=== PATIENT | female | born 1960 | race Caucasian/White ===

== ENCOUNTER 2020-12-06 18:05 | Observation (INO) | payer OTHER, SELFPAY ==
[2020-12-06] VITALS (8 sets, daily range): BP systolic 115–160; BP diastolic 68–104; PULSE 73–104; RESP 14–27; TEMP 36.3–36.7; O2SAT 96–100; BMI 35.3
--- NOTE | 2020-12-06 18:21 | EKG12_ITS ---
Test Reason : CP Blood Pressure : / mmHG Vent. Rate : 096 BPM Atrial Rate : 096 BPM P-R Int : 110 ms QRS Dur : 104 ms QT Int : 358 ms P-R-T Axes : 010 001 052 degrees QTc Int : 452 ms Sinus rhythm with short AR Incomplete right bundle branch block Borderline ECG Confirmed by ILANA PENALOZA, BEST ([id number]), material expeditor DEEPTI CHAMPION ([id number]) on 12/09/2020 9:19:44 AM Referred By: JASIEL/COLTEN Confirmed By:BEST PRECIADO MD
--- NOTE | 2020-12-06 18:22 | EDS_ITS ---
HPI History of Present Illness Chief Complaint: Chest Pain Detail of Chief Complaint: Chest pain Informant: patient Onset/Context/Timing Current Severity: 07/08 Maximum Severity: Severe Narrative Narrative: Patient presents to the emergency department complaint of chest pain that started somewhat suddenly after she had finished having intercourse. She describes a sharp stabbing pain in left side of her chest that radiated through to her back. Now the chest pain is mostly resolved describing discomfort in her back. She denies nausea or vomiting or diaphoresis. She is not sure if she was more short of breath than usual. Pain did not radiate into the arm or neck or jaw. She is not had discomfort like that before. Patient is a diabetic and has history of hypertension. Patient has history of remote DVT in 1982 but no issues since then. She is not had any recent travel or surgery. CVD Risk Factors: Positive for Hypertension and Diabetes [facility] Medical History (Updated 12/06/20 @ 20:[address] Amauri Arcos, DO) Diabetes Hypertension Home Medications lisinopril [Zestril] 40 mg PO DAILY 01/09/17 [History Last Taken Unknown] metformin 500 mg PO DAILY 01/09/17 [History Last Taken Unknown] montelukast 10 mg PO DAILY 01/09/17 [History Last Taken Unknown] omeprazole 20 mg PO DAILY 01/09/17 [History Last Taken Unknown] Allergy/AdvReac Type Severity Reaction Status Date / Time aspirin [ASA] Allergy Unknown Verified 12/06/20 18:19 codeine Allergy Unknown Verified 12/06/20 18:19 Social History Smoking Status: Current every day smoker tobacco type: cigarettes ROS ROS ED Review of Systems ROS Unobtainable: other Constitutional Constitutional ED: Reports lethargy; Denies chills, fever(s), sweats or weight loss Eyes Eyes: Denies blurry vision, change in vision or diplopia ENT ENT ED: Denies rhinorrhea or sore throat Cardiovascular Cardiovascular: Reports chest pain and racing heartbeat; Denies orthopnea Respiratory/Chest Respiratory/Chest: Reports dyspnea and dyspnea on exertion; Denies cough, orthopnea or sputum Gastrointestinal Gastrointestinal: Denies abdominal pain, diarrhea, nausea or vomiting Genitourinary Genitourinary ED: Denies dysuria, hematuria or urinary frequency Musculoskeletal Musculoskeletal: Denies arthralgias, back pain, myalgias or neck pain Integumentary Denies abscess, Abrasions or rash Neurologic Neurologic: Denies headache(s) or weakness Psychiatric Psychiatric: Denies anxiety, depression or suicidal thoughts Endocrine Endocrinology: Denies polydipsia, polyphagia or polyuria Hematologic/Lymphatic Hematologic/Lymphatic: Denies easy bleeding, easy bruising or lymphadenopathy Allergic/Immunologic Allergic/Immunologic ED: Denies mouth swelling, tongue swelling or urticaria EXAM Physical Exam Const Vital Signs: 12/06/20 18:06 12/06/20 18:27 12/06/20 18:53 Temperature 98.1 F Temperature Source Temporal Pulse Rate 104 H Respiratory Rate 27 H Respiratory Effort Normal Respiratory Pattern Normal Blood Pressure 160/104 H Blood Pressure Mean 122 Pulse Ox 98 Oxygen Delivery Method Room Air Room Air 12/06/20 19:51 Temperature Temperature Source Pulse Rate 79 Respiratory Rate 18 Respiratory Effort Respiratory Pattern Blood Pressure 117/91 H Blood Pressure Mean 99 Pulse Ox 100 Oxygen Delivery Method Room Air Positive well nourished and well developed General Appearance ED: well developed and NAD HEENT Reports TM's clear and moist mucous membranes normocephalic and atraumatic; Negative for trauma or tenderness Tympanic Membrane ED: Yes TM's clear Eyes PERRL and EOMs intact bilaterally General Eye ED: Negative for pale conjunctiva or scleral icterus Neck no lymphadenopathy, supple and no JVD General: Negative for tenderness Chest Wall inspection of chest normal and palpation of chest normal Chest: Negative for tenderness Resp normal respiratory effort and clear to auscultation bilaterally Effort and Inspection: Negative for respiratory distress or pain with movement Auscultation: Negative for rhonchi, wheezes or diminished lung sounds Cardio regular rate, regular rhythm, S1 normal heart sound, S2 normal heart sound and no murmurs Peripheral Pulses: pulses 2+ throughout GI normal to inspection, nondistended, normoactive bowel sounds, soft to palpation, non-tender, non-distended and no masses Back/Spine no CVA tenderness and no thoracic nor lumbar tenderness Extremity normal to inspection General Extremety ED: Negative for edema General Extremity: Negative for edema Neuro oriented x3, CN's II-XII intact bilaterally, no sensory deficits noted and gait normal Sensorium / Orientation: awake, alert, oriented to person, oriented to place and oriented to time Motor Exam: strength 5/5 throughout and strength abnormal Psych mental status grossly normal Skin no rashes or lesions noted and no wounds Heart Score History: Moderately Suspicious ECG: Nonspecific Repolarization Age: >45 - <65 years Risk Factors: 1 or 2 Risk Factors Troponin: </= Normal Limit Score: 4 MDM MDM MDM Narrative Medical decision making narrative: Etiology of patient's chest pain unclear. Case will be discussed with hospitalist to evaluate for admission. Patient's heart score is a 4. Lab Data Attestation: I reviewed the patient's lab results. Labs: Laboratory Results - last 24 hr 12/06/20 12/06/20 12/06/20 18:00 18:00 18:00 WBC 15.5 H RBC 4.70 Hgb 13.7 Hct 41.2 MCV 87.7 MCH 29.1 MCHC 33.3 RDW Std Deviation 39.9 RDW Coeff of Silvana 12.3 Plt Count 264 MPV 11.0 Immature Gran % (Auto) 0.400 Neut % (Auto) 46.3 L Lymph % (Auto) 46.6 H Butts % (Auto) 5.6 Eos % (Auto) 0.8 Baso % (Auto) 0.3 Absolute Neuts (auto) 7.2 Absolute Lymphs (auto) 7.22 H Nucleated RBC % 0 Differential Comment SCANNED D-Dimer Quant (PE/DVT) 0.55 H* Sodium 138 Potassium 3.6 Chloride 104 Carbon Dioxide 22.0 Anion Gap 12 BUN 10 Creatinine 1.11 H Estim Creat Clear Calc 57.03 Est GFR (MDRD) Af Amer 65 Est GFR (MDRD) Non-Af 53 L BUN/Creatinine Ratio 9.0 L Glucose 135 H Calcium 9.9 Troponin I High Sens 10.3 Radiography Chest X-Ray - ED: 1 View Diagnostic Testing: Radiology Impression Chest X-Ray 12/06/20 18:40 IMPRESSION: No acute radiographic abnormalities. Electronically Signed: Rolando Dickey MD at 19:00 EDT Tel , Service support , Chest CTA 12/06/20 18:51 IMPRESSION: No demonstrated pulmonary embolism or arterial dissection. Electronically Signed: Maile Jones MD at 19:52 EDT Tel , Service support , 1 view chest x-ray obtained interpreted by myself as no acute disease process. EKG Initial EKG: Attestation: I personally reviewed and interpreted this EKG as follows: Comments: Sinus rhythm with a ventricular rate of 96 bpm with a short OK and incomplete right bundle branch block. Prior EKG tracings: available for review Prior: Unchanged Discharge Plan Dx/Rx/DC Orders Clinical Impression: Chest pain Disposition Disposition: Acute Care Hospital [facility]
[2020-12-06] MEDS: Clopidogrel Bisulfate 300 MG Tablet 75 MG PO (18:33)
[2020-12-06] MEDS: 0.9% Normal Saline 1,000 ML 150 ML IV (18:33)
[2020-12-06 18:38] LABS: Absolute Lymphocyte Count 7.22 X10^3/uL (0.83-4.51); Absolute Neutrophil Count 7.2 X10^3/uL (2.0-7.7); Basophil# 0.05 X10^3/uL; Basophil% 0.3 % (0-1); Eosinophil# 0.13 X10^3/uL; Eosinophils% 0.8 % (0-5); Hematocrit 41.2 % (37-47); Hemoglobin 13.7 g/dL (12.0-15.0); Lymphocyte # 7.22 X10^3/ul (0.83-4.51); Lymphocyte % 46.6 % (19-41); Mean Corp Hgb Conc 33.3 g/dL (32-36); Mean Corpuscular Hgb 29.1 pg (27.0-32.0); Mean Corpuscular Volume 87.7 fL (81-99); Monocyte# 0.87 X10^3/uL; Monocyte% 5.6 % (0-10); NRBC Flagged by Analyzer 0 % (0-5); Neutrophil # 7.17 X10^3/uL (2.7-7.7); Neutrophil % 46.3 % (47-70); POSITIVE DIFFERENTIAL YES; Platelet Count 264 K/mm3 (150-450); RBC Distribution Width CV 12.3 % (11.6-14.6); RBC Distribution Width SD 39.9 fl (35.1-43.9); White Blood Count 15.5 K/mm3 (4.4-11.0)
--- NOTE | 2020-12-06 18:40 | RAD_ITS ---
INDICATION: chest pain EXAMINATION/TECHNIQUE: X-RAY - XR Chest 1 View COMPARISON: None. FINDINGS: The lungs are clear. Tortuous and calcified thoracic aorta. The heart is not enlarged. No pleural effusion or pneumothorax. No acute osseous abnormalities. RAD/Chest 1 View (Portable) IMPRESSION: No acute radiographic abnormalities. Electronically Signed: Rolando Dickey MD at 19:00 EDT Tel , Service support ,
[2020-12-06 18:47] LABS: Differential Indicated SCAN CRITERIA MET
[2020-12-06 18:51] LABS: D-Dimer Quantitative (DVT/PE) 0.55 FEU/ug/m (0.27-0.49)
--- NOTE | 2020-12-06 18:51 | CT_ITS ---
STUDY: CTA CHEST REASON FOR EXAM: Female, 60 years old. chest pain RADIATION DOSAGE (If Supplied By Facility): CTDIvol = ( 12.66 ) mGy, DLP = ( 485.36 ) mGycm TECHNIQUE: The examination was performed with the intravenous administration of IV 100mL Isovue-370. Post-processing of the angiographic images was performed, with multiplanar reformation and 3D reconstruction. Individualized dose optimization techniques were used for this CT. COMPARISON: None. FINDINGS: Normal enhancement of the main pulmonary artery and right and left pulmonary arteries. Normal enhancement of the bilateral peripheral pulmonary arteries. There is no demonstrated pulmonary embolism. Normal thoracic aorta and visualized great vessels. There is no demonstrated aortic dissection. Normal heart and pericardium. Normal mediastinum. Normal hilar regions. Normal visualized trachea and bronchi. The lungs are well expanded. Normal pulmonary parenchyma. Normal pleura. Normal chest wall structures. There are degenerative changes of thoracic spine. Normal visualized upper abdomen. CT/CTA Chest W/WO Contrast IMPRESSION: No demonstrated pulmonary embolism or arterial dissection. Electronically Signed: Maile Jones MD at 19:52 EDT Tel , Service support ,
[2020-12-06 18:55] LABS: Anion Gap 12 (5-15); BUN 10 mg/dL (7-18); Calcium,Total 9.9 mg/dL (8.5-10.1); Chloride 104 mmol/L (98-107); Creatinine, Serum 1.11 mg/dL (0.55-1.02); EST Glomerular Filtration Rate 53 mL/min (>60); Est Glom Filt Rate - Afr Amer 65 mL/min (>60); Estimated Creatinine Clearance 57.03 ml/min; Glucose 135 mg/dL (74-106); Potassium 3.6 mmol/L (3.5-5.1); Sodium Level 138 mmol/L (136-145); Troponin-I HS 10.3 pg/mL (3.0-53.7)
[2020-12-06 19:05] LABS: Differential Comment SCANNED
--- NOTE | 2020-12-06 20:29 | HP.PCM.HOS_ITS ---
HPI - General General Date of Admission: 12/06/20 HPI Narrative GRETA CRAWLEY, is a 60 F with a significant history of GERD; allergies; type 2 diabetes; hypertension; tobacco abuse; DVT after childbirth in 1982 who presents to the emergency department after sudden onset chest pain that started after intercourse. Her symptoms started 30-minute before presentation. The chest pain is located at her left chest. She described her chest pain as sharp. The pain radiates to his left lower shoulder blade. The pain is intermittent. The severity of the pain is 8/10. The pain was persistent but eventually it improved. At the time of examination he complained of only soreness. He d enies any nausea vomiting or diaphoresis. She had shortness of breath with the pain. His father had heart disease from rheumatic fever. His father eventually from a massive stroke. REPLACED BY [facility] Medical History Diabetes Hypertension Home Medications lisinopril [Zestril] 40 mg PO DAILY 01/09/17 [History Last Taken Unknown] metformin 500 mg PO DAILY 01/09/17 [History Last Taken Unknown] montelukast 10 mg PO DAILY 01/09/17 [History Last Taken Unknown] omeprazole 20 mg PO DAILY 01/09/17 [History Last Taken Unknown] Allergy/AdvReac Type Severity Reaction Status Date / Time aspirin [ASA] Allergy Unknown Verified 12/06/20 18:19 codeine Allergy Unknown Verified 12/06/20 18:19 Family History (Updated 12/06/20 @ 20:[address] Pankaj Ng MD) Other CVA (cerebral vascular accident) Heart disease Hypertension Social History Smoking Status: Current every day smoker tobacco type: cigarettes ROS ROS Narrative 12 point review of system is negative except as stated in HPI. Vital Signs Vital Signs Vital Signs: 12/06/20 18:06 12/06/20 18:27 12/06/20 18:53 Temperature 98.1 F Temperature Source Temporal Pulse Rate 104 H Respiratory Rate 27 H Respiratory Effort Normal Respiratory Pattern Normal Blood Pressure 160/104 H Blood Pressure Mean 122 Pulse Ox 98 Oxygen Delivery Method Room Air Room Air 12/06/20 19:51 12/06/20 20:14 12/06/20 20:19 Temperature 98.1 F Temperature Source Temporal Pulse Rate 79 73 76 Respiratory Rate 18 18 14 Respiratory Effort Respiratory Pattern Blood Pressure 117/91 H 117/91 H 132/83 H Blood Pressure Mean 99 99 99 Pulse Ox 100 96 97 Oxygen Delivery Method Room Air Room Air Room Air Weight Weight: 108.6 kg Body Mass Index (BMI) 35.3 Physical Exam Narrative Physical exam: General: Well-nourished, well-developed, no acute distress Head: Normocephalic, atraumatic, no tenderness Eyes: PERRLA, EOMI ENT, no trauma, moist mucous membranes, no rhinorrhea Neck: Nontender, full range of motion, no spinal tenderness, deformities, step- off CVS: Regular rate and rhythm Respiratory no acute distress, clear to auscultation bilaterally, chest wall nontender, no wheezing Abdomen: Soft, nontender, nondistended, normal bowel sounds, no masses : Deferred Back: Nontender, no CVA tenderness, no midline spinal tenderness, deformities, step-offs Extremities: Nontender full range of motion, no trauma Skin: Normal color, no trauma, abrasions Neuro: Alert, oriented, cranial nerves II through XII grossly intact. Results Lab / Micro Data Result Diagrams: 12/06/20 18:00 12/06/20 18:00 Labs: Laboratory Results - last 24 hr 12/06/20 12/06/20 12/06/20 18:00 18:00 18:00 WBC 15.5 H RBC 4.70 Hgb 13.7 Hct 41.2 MCV 87.7 MCH 29.1 MCHC 33.3 RDW Std Deviation 39.9 RDW Coeff of Silvana 12.3 Plt Count 264 MPV 11.0 Immature Gran % (Auto) 0.400 Neut % (Auto) 46.3 L Lymph % (Auto) 46.6 H [place] % (Auto) 5.6 Eos % (Auto) 0.8 Baso % (Auto) 0.3 Absolute Neuts (auto) 7.2 Absolute Lymphs (auto) 7.22 H Nucleated RBC % 0 Differential Comment SCANNED D-Dimer Quant (PE/DVT) 0.55 H* Sodium 138 Potassium 3.6 Chloride 104 Carbon Dioxide 22.0 Anion Gap 12 BUN 10 Creatinine 1.11 H Estim Creat Clear Calc 57.03 Est GFR (MDRD) Af Amer 65 Est GFR (MDRD) Non-Af 53 L BUN/Creatinine Ratio 9.0 L Glucose 135 H Calcium 9.9 Troponin I High Sens 10.3 Radiology Impression Chest X-Ray 12/06/20 18:40 IMPRESSION: No acute radiographic abnormalities. Electronically Signed: Rolando Dickey MD at 19:00 EDT Tel , Service support , Chest CTA 12/06/20 18:51 IMPRESSION: No demonstrated pulmonary embolism or arterial dissection. Electronically Signed: Maile Jones MD at 19:52 EDT Tel , Service support , Assessment & Plan Assessment/Plan (1) Chest pain: QUALIFIERS: Chest pain type: unspecified Qualified Code(s): R07.9 - Chest pain, unspecified (2) Diabetes mellitus, type 2: QUALIFIERS: Diabetes mellitus penitentiary insulin use: without buttermilk drier operator use Diabetes mellitus complication status: with kidney complications Diabetes mellitus complication detail: with chronic kidney disease Chronic kidney disease stage: stage 3 (moderate) Chronic kidney disease stage 3 subtype: stage 3a (GFR 45-59) Qualified Code(s): E11.22 - Type 2 diabetes mellitus with diabetic chronic kidney disease; N18.31 - Chronic kidney disease, stage 3a PLAN: Chest pain Place on a monitored bed at PCU Impression of chest x-ray by radiologist: No acute radiographic graphic abnormalities. Actual CXR image was independently visualized. No acute cardiopulmonary process was noted. D-dimer was elevated. Follow-up chest CTA was negative for dissection or embolism. Actual EKG tracing was independently visualized. EKG tracing showed sinus rhythm with TN interval and incomplete right bundle branch block. Old records reviewed showed unchanged EKG. Patient is allergic to aspirin was given Plavix at emergency department. Plavix ordered for inpatient. SL NTG 0.4 mg prn as needed for chest pain ordered Morphine as needed for pain ordered We will check lipid panel. Initial high sensitive troponin was negative. Serial cardiac enzymes ordered Stat EKG as needed for chest pain Chemical stress test in the AM if the cardiac enzymes are negative. Patient has a history of right ankle ORIF and reported that she has been limping. Lymphocytic leukocytosis Likely reactive. Trend Hypertension Blood pressure is not within goal Lisinopril continued continued. Trend blood pressure and adjust blood pressure medications. Diabetes mellitus Patient with mild hyperglycemia Hold home Metformin. Accu-Chek QA CHS with correction scale insulin ordered. Tobacco abuse Counselled. CKD stage IIIa CKD like secondary to hypertensive nephrosclerosis and diabetic nephropathy. Stable Allergies: montelukast continued, DVT prophylaxis ordered. SCD ordered Charges/Coding Visit Charges OBSV E&M: 16966 Initial observation care L3
--- NOTE | 2020-12-06 20:36 | ECHOCS_ITS ---
Reason For Study: Dyspnea/SOB Procedure This was a 2D Doppler, Color Flow transthoracic echocardiogram. The study was technically difficult. Contrast injection was performed. Exam performed in department. Left Ventricle Normal LV size. Left ventricular systolic function is normal. The estimated ejection fraction is 60 %. Stage 1 diastolic dysfunction. No regional wall motion abnormalities noted. Right Ventricle Normal RV size. Normal systolic function. Atria Normal left atrium. Normal right atrium. Mitral Valve Normal mitral valve. Tricuspid Valve Normal tricuspid valve. Mild tricuspid valve insufficiency. Pulmonary artery systolic pressure is 26 mmHg. Aortic Valve Normal aortic valve. Trisinus/trileaflet aortic valve. Pulmonic Valve Normal pulmonic valve. Great Vessels Normal aortic root. The pulmonary artery is normal size. Normal inferior vena cava. Pericardium/Pleural No pericardial effusion. Medication Diluted definity 2.5ml given slow IV push to enhance endocardial definition. MMode/2D Measurements & Calculations LVIDd: 4.8 cm IVSd: 0.90 cm Ao root diam: 3.3 cm LVIDs: 3.4 cm LVPWd: 1.0 cm LA dimension: 3.8 cm RVDd: 3.6 cm FS: 27.7 % LAV(MOD-bp): 43.1 ml LA A4 area: 14.5 cm2 RA A4 area: 12.8 cm2 LAV(MOD-bp) Indexed: 19.4 ml/m2 LAV(MOD-sp2): 51.5 ml LAV(MOD-sp4): 36.3 ml Time Measurements MV dec time: 0.24 sec Doppler Measurements & Calculations MV E max markell: 75.9 cm/sec Lat Peak E' Markell: 8.5 cm/sec Med Peak E' Markell: 7.6 cm/sec MV A max markell: 89.8 cm/sec E/E' lat: 8.9 E/E' med: 10.0 MV E/A: 0.84 MV V2 max: 99.0 cm/sec MV P1/2t max markell: 85.4 cm/sec Ao V2 max: 126.7 cm/sec MV max P.9 mmHg MV P1/2t: 72.3 msec Ao max P.4 mmHg MV V2 mean: 59.0 cm/sec MV dec slope: 346.1 cm/sec2 MV mean P.6 mmHg MV V2 VTI: 32.2 cm MVA(P1/2t): 3.0 cm2 LV V1 max: 101.9 cm/sec PA V2 max: 123.3 cm/sec TR max markell: 237.7 cm/sec LV V1 max P.2 mmHg TR max P.6 mmHg ECHO/Echo Complete W/ Contrast Interpretation Summary Normal LV size. Left ventricular systolic function is normal. The estimated ejection fraction is 60 %. Stage 1 diastolic dysfunction. Pulmonary artery systolic pressure is 26 mmHg. Contrast injection was performed. Ordering Physician: Pankaj Ng Referring Physician: Kun Hager Performed By: Franco Way RCS
--- NOTE | 2020-12-06 20:36 | EKG12_ITS ---
Test Reason : AM EKG Blood Pressure : / mmHG Vent. Rate : 072 BPM Atrial Rate : 072 BPM P-R Int : 118 ms QRS Dur : 114 ms QT Int : 424 ms P-R-T Axes : 015 005 033 degrees QTc Int : 464 ms Normal sinus rhythm Normal ECG When compared with ECG of 06-DEC-2020 21:03, MANUAL COMPARISON REQUIRED, DATA IS UNCONFIRMED Confirmed by CAROLINE PENALOZA, ANGELINA ([id number]), manager editorial DEEPTI CHAMPION ([id number]) on 12/08/2020 8:48:05 AM Referred By: LEONELA Confirmed By:ANGELINA VELAZQUEZ MD
[2020-12-06 21:27] LABS: Troponin-I HS 9.9 pg/mL (3.0-53.7)
[2020-12-06 22:51] LABS: Bedside Glucose 206 mg/dL (70-110)
[2020-12-07] VITALS (15 sets, daily range): BP systolic 90–124; BP diastolic 58–75; PULSE 62–91; RESP 14–15; TEMP 36.4–36.7; O2SAT 93–97
[2020-12-07 00:37] LABS: Troponin-I HS 12.1 pg/mL (3.0-53.7)
--- NOTE | 2020-12-07 05:55 | EKG12_ITS ---
Test Reason : CP ADMISSION Blood Pressure : / mmHG Vent. Rate : 071 BPM Atrial Rate : 071 BPM P-R Int : 124 ms QRS Dur : 110 ms QT Int : 410 ms P-R-T Axes : 009 006 030 degrees QTc Int : 445 ms Normal sinus rhythm Normal ECG When compared with ECG of 06-DEC-2020 18:09, MANUAL COMPARISON REQUIRED, DATA IS UNCONFIRMED Confirmed by CAROLINE PENALOZA, ANGELINA ([id number]), field map editor DEEPTI CHAMPION ([id number]) on 12/08/2020 8:48:53 AM Referred By: LEONELA Confirmed By:ANGELINA VELAZQUEZ MD
[2020-12-07] MEDS: Pantoprazole Sodium 20 MG Tablet PO (06:08)
[2020-12-07] MEDS: Lisinopril 40 MG Tablet PO (06:08)
[2020-12-07] MEDS: Montelukast 10 MG Tablet PO (06:08)
[2020-12-07] MEDS: Clopidogrel Bisulfate 75 MG Tablet PO (06:09)
[2020-12-07] MEDS: 0.9% Saline Lock 10 ML Syringe IV (06:09)
[2020-12-07 06:30] LABS: Bedside Glucose 155 mg/dL (70-110)
[2020-12-07 06:38] LABS: Absolute Lymphocyte Count 4.72 X10^3/uL (0.83-4.51); Absolute Neutrophil Count 4.5 X10^3/uL (2.0-7.7); Basophil# 0.03 X10^3/uL; Basophil% 0.3 % (0-1); Eosinophil# 0.29 X10^3/uL; Eosinophils% 2.8 % (0-5); Hematocrit 37.4 % (37-47); Hemoglobin 11.9 g/dL (12.0-15.0); Lymphocyte # 4.72 X10^3/ul (0.83-4.51); Lymphocyte % 45.5 % (19-41); Mean Corp Hgb Conc 31.8 g/dL (32-36); Mean Corpuscular Hgb 28.6 pg (27.0-32.0); Mean Corpuscular Volume 89.9 fL (81-99); Mean Platelet Vol. 10.8 fl (6.2-12.0); Monocyte# 0.82 X10^3/uL; Monocyte% 7.9 % (0-10); NRBC Flagged by Analyzer 0 % (0-5); Neutrophil # 4.46 X10^3/uL (2.7-7.7); Platelet Count 215 K/mm3 (150-450); RBC Distribution Width CV 12.5 % (11.6-14.6); RBC Distribution Width SD 41.1 fl (35.1-43.9); Red Blood Count 4.16 M/mm3 (4.2-5.4); White Blood Count 10.4 K/mm3 (4.4-11.0)
[2020-12-07 07:14] LABS: Anion Gap 7 (5-15); BUN 11 mg/dL (7-18); BUN/Creat Ratio 11.6 RATIO (10-20); Calcium,Total 8.7 mg/dL (8.5-10.1); Chloride 109 mmol/L (98-107); Cholesterol 187 mg/dL (200); Creatinine, Serum 0.95 mg/dL (0.55-1.02); EST Glomerular Filtration Rate 64 mL/min (>60); Est Glom Filt Rate - Afr Amer 77 mL/min (>60); Estimated Creatinine Clearance 66.64 ml/min; Glucose 145 mg/dL (74-106); High Density Lipoprotein 36 mg/dL; Potassium 3.8 mmol/L (3.5-5.1); Sodium Level 141 mmol/L (136-145); Triglycerides 234 mg/dL; Very Low Density Lipoprotein 47 mg/dL (5-40)
--- NOTE | 2020-12-07 11:27 | STRESSREP ---
Stress Test Report of diabetes, hypertension, and chest pain. Stress protocol: Pharmacologic myocardial perfusion stress test. 60-year-old lady with a history Resting EKG demonstrates normal sinus rhythm with a rate of 83 bpm normal intervals are noted resting blood pressure is 126/74 mmHg. 0.4 mg of regadenoson was infused per usual protocol followed by rapid intravenous saline flush injection. Continuous EKG monitoring was performed. At rest there were no ST or T wave changes noted to suggest abnormal flow reserve at peak infusion nonspecific ST changes were noted. No clinical angina was noted the maximum heart rate was 93 bpm which was 57% of max infected heart rate the maximum workload was 1 metabolic equivalent. Myocardial perfusion protocol. 14.4 mCi of technetium 99m sestamibi was injected at rest. 0.4 mg of regadenoson was infused per usual protocol. At peak infusion 44.8 mCi of technetium 99m sestamibi was injected stress images were obtained stress and rest images were reconstructed and compared in the short axis vertical long and horizontal long axis. Gated images were also obtained. Perfusion SPECT analysis: Review of the stress images demonstrate normal cardiac silhouette size. There is normal perfusion noted in the septum lateral wall and inferior wall. The mid anterior wall demonstrates a moderate amount of reduction of perfusion which improves on the stress images to a mild to moderate degree. The above is suggestive of a mild to moderate amount of mid anterior ischemia. No previous infarct is noted. Gated SPECT analysis: The gated ejection fraction is 65%. Conclusion: Abnormal pharmacologic myocardial perfusion stress test with mid anterior ischemia. Preserved ejection fraction.
--- NOTE | 2020-12-07 11:37 | PCM.PN.HOSP ---
Subjective Subjective Patient overnight with no acute events per self and per nursing report. This a.m. she denies any further chest discomfort. She has had chest pain before but not as severe she notes. She denies any associated nausea, emesis, lightheadedness, dizziness, diaphoresis or dyspnea. She does have some reproducible discomfort on examination but otherwise no complaints. She does report that she did not get very much sleep and is very tired. Patient denies fevers, chills, nausea, emesis, abdominal pain or dyspnea. Objective Data Objective Data Vital Signs: Vital Signs Temp Pulse Resp BP Pulse Ox 97.8 F 77 14 124/70 H 97 12/07/20 11:23 12/07/20 11:23 12/07/20 11:23 12/07/20 11:23 12/07/20 11:23 Oxygen Delivery Method Room Air Weight: 239 lb 6.752 oz Body Mass Index (BMI) 35.3 Intake & Output: Intake and Output for Last 24 Hours 12/05/20 12/06/20 12/07/20 23:59 23:59 23:59 Intake Total 367.5 / 607.5 480 / 480 Balance 367.5 / 607.5 480 / 480 Lab / Micro Data Result Diagrams: 12/07/20 05:52 12/07/20 05:52 Labs: Laboratory Results - last 24 hr 12/06/20 18:00: WBC 15.5 H, RBC 4.70, Hgb 13.7, Hct 41.2, MCV 87.7, MCH 29.1, MCHC 33.3, RDW Std Deviation 39.9, RDW Coeff of Silvana 12.3, Plt Count 264, MPV 11.0, Immature Gran % (Auto) 0.400, Neut % (Auto) 46.3 L, Lymph % (Auto) 46.6 H, Mifflin % (Auto) 5.6, Eos % (Auto) 0.8, Baso % (Auto) 0.3, Absolute Neuts (auto) 7.2, Absolute Lymphs (auto) 7.22 H, Nucleated RBC % 0, Differential Comment SCANNED 12/06/20 18:00: D-Dimer Quant (PE/DVT) 0.55 H* 12/06/20 18:00: Sodium 138, Potassium 3.6, Chloride 104, Carbon Dioxide 22.0, Anion Gap 12, BUN 10, Creatinine 1.11 H, Estim Creat Clear Calc 57.03, Est GFR (MDRD) Af Amer 65, Est GFR (MDRD) Non-Af 53 L, BUN/Creatinine Ratio 9.0 L, Glucose 135 H, Calcium 9.9, Troponin I High Sens 10.3 12/06/20 20:56: Troponin I High Sens 9.9 12/06/20 22:46: POC Glucose 206 H 12/07/20 00:03: Troponin I High Sens 12.1 12/07/20 05:52: WBC 10.4, RBC 4.16 L, Hgb 11.9 L, Hct 37.4, MCV 89.9, MCH 28.6, MCHC 31.8 L, RDW Std Deviation 41.1, RDW Coeff of Silvana 12.5, Plt Count 215, MPV 10.8, Immature Gran % (Auto) 0.500, Neut % (Auto) 43.0 L, Lymph % (Auto) 45.5 H, Mifflin % (Auto) 7.9, Eos % (Auto) 2.8, Baso % (Auto) 0.3, Absolute Neuts (auto) 4.5, Absolute Lymphs (auto) 4.72 H, Nucleated RBC % 0 12/07/20 05:52: Sodium 141, Potassium 3.8, Chloride 109 H, Carbon Dioxide 25.0, Anion Gap 7, BUN 11, Creatinine 0.95, Estim Creat Clear Calc 66.64, Est GFR (MDRD) Af Amer 77, Est GFR (MDRD) Non-Af 64, BUN/Creatinine Ratio 11.6, Glucose 145 H, Calcium 8.7, Triglycerides 234 H, Cholesterol 187, LDL Cholesterol 104, VLDL Cholesterol 47 H, HDL Cholesterol 36 L 12/07/20 06:07: POC Glucose 155 H Radiography Diagnostic Testing: Radiology Impression Chest X-Ray 12/06/20 18:40 IMPRESSION: No acute radiographic abnormalities. Electronically Signed: Rolando Dickey MD at 19:00 EDT Tel , Service support , Chest CTA 12/06/20 18:51 IMPRESSION: No demonstrated pulmonary embolism or arterial dissection. Electronically Signed: Maile Jones MD at 19:52 EDT Tel , Service support , Physical Exam Narrative Physical Examination: General: Awake, alert, oriented x 3 and cooperative, laying in the PCU bed, denies any current chest discomfort. Skin: Normal color, normal turgor, no icterus, no cyanosis. HEENT: AT/NC, EOMI, PERRLA, MMM, no carotid bruits or JVD noted. Lungs: Mildly diminished breath sounds, greater bases, appropriate effort, no rales, ronchi or wheezing. Heart: Regular rate and rhythm; no gallop, rub audible, some reproducible left upper chest discomfort with palpation. Abdomen: Soft, obese, NTTP, ND, mildly hyperactive BS. Extremities: No cyanosis, clubbing, or edema. Neurological: Patient awake, alert, oriented as noted, cognitive function intact; pupils equally reactive to light and accommodation, cranial nerves II-XII grossly normal, moving all 4 extremities, no focal deficits, strength preserved. Psychiatric: Affect appears fatigued otherwise normal, no acute evidence of depressive or anxiety feelings. Assessment & Plan Assessment/Plan (1) Chest pain: QUALIFIERS: Chest pain type: unspecified Qualified Code(s): R07.9 - Chest pain, unspecified PLAN: The patient is a 60 y/o F w/ PMHx: Obesity, Diabetes mellitus type II, HTN, Tobacco use, Allergic Rhinitis, GERD who presents to the [facility] ED on 12/06/20 with onset of chest discomfort. 1. Chest Pain with abnormal stress testing: EKG in ED with sinus rhythm with incomplete right bundle branch block, CXR w/ no acute cardiopulmonary findings, initial trop unremarkable, D-dimer mildly elevated with follow-up CTPA with no evidence of dissection or embolism or acute cardiopulmonary findings. Patient was admitted to the PCU, maintained on monitor, serial cardiac enzymes x3 of remained unremarkable, EKGs with no acute changes noted. Patient underwent stress testing 12/07/2020 which was noted to be remarkable for inducible ischemia. Cardiology consulted, pending. Will maintain n.p.o. status for consideration for stress testing today. ASA, NG, morphine. FLP pending. Mag pending. 2. Hypertension: Continue home regimen including lisinopril with hold parameters as needed, PRN hydralazine. 3. Diabetes mellitus type II: Hold oral home regimen, currently n.p.o. but add back ADA diet once appropriate, accu checks w/ ISS. 4. Obesity: Weight loss and lifestyle changes encouraged. 5. Allergic rhinitis: Continue patient home montelukast regimen. 6. Tobacco Abuse: Encouraged cessation, inpatient consultation per RT, NR if desired. 7. GERD: Continue patient home PPI. 8. DVT prophylaxis: SCDs, holding chemoprophylaxis given planned cardiology evaluation with possible cardiac catheterization. Charges/Coding Visit Charges OBSV E&M: 54074 Subsequent observation care L3
[2020-12-07 11:51] LABS: Bedside Glucose 175 mg/dL (70-110)
--- NOTE | 2020-12-07 11:52 | CASEMGMT ---
According to the [facility] website, the following are in-network tertiary facilities: [place], [facility], [facility], [facility], [facility], and . Gretchen BENÍTEZ CM
[2020-12-07 11:57] LABS: Magnesium 1.9 mg/dL (1.6-2.6)
[2020-12-07] MEDS: 0.9% Normal Saline 1,000 ML 100 ML IV (11:58)
--- NOTE | 2020-12-07 11:59 | CON.PCM.CA_ITS ---
Assessment & Plan Assessment/Plan (1) Chest pain: QUALIFIERS: Chest pain type: unspecified Qualified Code(s): R07.9 - Chest pain, unspecified PLAN: The patient presents with chest discomfort with minimal activity and was noted to have an abnormal stress test. I would recommend at this time that with a history of diabetes and hypertension that we proceed with a left heart catheterization. Depending on the findings further recommendations will be made. The risk benefits alternatives have been explained to her she understands and agrees to proceed. Addendum at 1:40 PM. Cardiac catheterization performed today demonstrates no obstructive coronary artery disease. Ejection fraction is preserved. The above is therefore likely secondary to breast attenuation artifact. Will discharge for outpatient follow-up with primary physician. Thank you for allowing me to participate in the care of your patient. Please don't hesitate to call if any issues arise. HPI Consult Data Date of Consult: 12/07/20 HPI Narrative HPI Narrative: GRETA CRAWLEY, is a 60 F who presents with chest discomfort described as a pressure as well as sharp radiating to her left back. She says that she has had similar discomfort in the past but this was more intense. She has been under fair amount of stress recently culminating in the discomfort yesterday. She has had no dizziness or diaphoresis no near syncope or syncope. She is a known diabetic and hypertensive. She has been compliant with her medications. She presented to the emergency room was evaluated and cardiac enzymes were normal. She was scheduled for a stress test which she underwent today and there was mild anterior ischemia and cardiology was consulted for further evaluation. [facility] Medical History Diabetes Hypertension Home Medications lisinopril [Zestril] 40 mg PO DAILY 01/09/17 [History Last Taken 12/06/20] metformin 500 mg PO DAILY 01/09/17 [History Last Taken 12/06/20] montelukast 10 mg PO DAILY 01/09/17 [History Last Taken 12/06/20] omeprazole 20 mg PO DAILY 01/09/17 [History Last Taken 12/06/20] Allergy/AdvReac Type Severity Reaction Status Date / Time aspirin [ASA] Allergy Unknown Verified 12/06/20 18:19 codeine Allergy Unknown Verified 12/06/20 18:19 Family History Other CVA (cerebral vascular accident) Heart disease Hypertension Social History Smoking Status: Current every day smoker tobacco type: cigarettes ROS Constitutional Constitutional: Denies fever(s) or weight loss Eyes Eyes: Reports systems reviewed and no addt'l complaints, except as documented ENT HEENT: Reports systems reviewed and no addt'l complaints, except as documented Cardiovascular Cardiovascular: Reports chest pain at rest, chest pain with activity and other Respiratory/Chest Respiratory/Chest: Reports systems reviewed and no addt'l complaints, except as documented Gastrointestinal Gastrointestinal: Denies change in bowel habits, nausea, vomiting or weight changes Genitourinary Genitourinary: Denies difficulty urinating Musculoskeletal Musculoskeletal: Denies joint stiffness or muscle weakness Integumentary Integumentary: Denies lesions Neurologic Neurologic: Denies dizziness or syncope Psychiatric Psychiatric: Denies anxiety Endocrine Endocrinology: Denies excessive sweating or fatigue Hematologic/Lymphatic Hematologic/Lymphatic: Denies anemia Allergic/Immunologic Allergic/Immunologic: Denies seasonal rhinorrhea Physical Exam Const oriented x3 and healthy appearing Orientation / Consciousness: awake HEENT normocephalic Eyes PERRL and conjunctivae normal Neck supple, no JVD and no carotid bruits Chest inspection of chest normal Resp normal respiratory effort and clear to auscultation bilaterally Cardio Palpation: normal PMI Rate: regular rate Rhythm: regular rhythm Heart Sounds: S1 normal and S2 normal Peripheral Pulses: pulses 2+ throughout GI normal to inspection, nondistended, normoactive bowel sounds Extremity normal to inspection and no clubbing, cyanosis or edema Psych mental status grossly normal Objective Data Vital Signs: Vital Signs Temp Pulse Resp BP Pulse Ox 97.8 F 77 14 124/70 H 97 12/07/20 11:23 12/07/20 11:23 12/07/20 11:23 12/07/20 11:23 12/07/20 11:23 Oxygen Delivery Method Room Air Weight: 239 lb 6.752 oz Body Mass Index (BMI) 35.3 Intake & Output: Intake and Output for Last 24 Hours 12/05/20 12/06/20 12/07/20 23:59 23:59 23:59 Intake Total 367.5 / 607.5 480 / 480 Balance 367.5 / 607.5 480 / 480 Lab / Micro Data Result Diagrams: 12/07/20 05:52 12/07/20 05:52 Labs: Laboratory Results - last 24 hr 12/06/20 18:00: WBC 15.5 H, RBC 4.70, Hgb 13.7, Hct 41.2, MCV 87.7, MCH 29.1, MCHC 33.3, RDW Std Deviation 39.9, RDW Coeff of Silvana 12.3, Plt Count 264, MPV 11.0, Immature Gran % (Auto) 0.400, Neut % (Auto) 46.3 L, Lymph % (Auto) 46.6 H, Bradley % (Auto) 5.6, Eos % (Auto) 0.8, Baso % (Auto) 0.3, Absolute Neuts (auto) 7.2, Absolute Lymphs (auto) 7.22 H, Nucleated RBC % 0, Differential Comment SCANNED 12/06/20 18:00: D-Dimer Quant (PE/DVT) 0.55 H* 12/06/20 18:00: Sodium 138, Potassium 3.6, Chloride 104, Carbon Dioxide 22.0, Anion Gap 12, BUN 10, Creatinine 1.11 H, Estim Creat Clear Calc 57.03, Est GFR (MDRD) Af Amer 65, Est GFR (MDRD) Non-Af 53 L, BUN/Creatinine Ratio 9.0 L, Glucose 135 H, Calcium 9.9, Troponin I High Sens 10.3 12/06/20 20:56: Troponin I High Sens 9.9 12/06/20 22:46: POC Glucose 206 H 12/07/20 00:03: Troponin I High Sens 12.1 12/07/20 00:03: Magnesium 1.9 12/07/20 05:52: WBC 10.4, RBC 4.16 L, Hgb 11.9 L, Hct 37.4, MCV 89.9, MCH 28.6, MCHC 31.8 L, RDW Std Deviation 41.1, RDW Coeff of Islvana 12.5, Plt Count 215, MPV 10.8, Immature Gran % (Auto) 0.500, Neut % (Auto) 43.0 L, Lymph % (Auto) 45.5 H, Bradley % (Auto) 7.9, Eos % (Auto) 2.8, Baso % (Auto) 0.3, Absolute Neuts (auto) 4.5, Absolute Lymphs (auto) 4.72 H, Nucleated RBC % 0 12/07/20 05:52: Sodium 141, Potassium 3.8, Chloride 109 H, Carbon Dioxide 25.0, Anion Gap 7, BUN 11, Creatinine 0.95, Estim Creat Clear Calc 66.64, Est GFR (MDRD) Af Amer 77, Est GFR (MDRD) Non-Af 64, BUN/Creatinine Ratio 11.6, Glucose 145 H, Calcium 8.7, Triglycerides 234 H, Cholesterol 187, LDL Cholesterol 104, VLDL Cholesterol 47 H, HDL Cholesterol 36 L 12/07/20 06:07: POC Glucose 155 H 12/07/20 11:28: POC Glucose 175 H Cardiology Labs/Tests 12/06/20 18:00: WBC 15.5 H, RBC 4.70, Hgb 13.7, Hct 41.2, MCV 87.7, MCH 29.1, MCHC 33.3, Plt Count 264, MPV 11.0, Immature Gran % (Auto) 0.400, Neut % (Auto) 46.3 L, Lymph % (Auto) 46.6 H, Bradley % (Auto) 5.6, Eos % (Auto) 0.8, Baso % (Auto) 0.3, Absolute Neuts (auto) 7.2, Nucleated RBC % 0 12/06/20 18:00: D-Dimer Quant (PE/DVT) 0.55 H* 12/06/20 18:00: Sodium 138, Potassium 3.6, Chloride 104, Carbon Dioxide 22.0, Anion Gap 12, BUN 10, Creatinine 1.11 H, Est GFR (MDRD) Af Amer 65, Est GFR (MDRD) Non-Af 53 L, BUN/Creatinine Ratio 9.0 L, Glucose 135 H, Calcium 9.9 12/07/20 00:03: Magnesium 1.9 12/07/20 05:52: WBC 10.4, RBC 4.16 L, Hgb 11.9 L, Hct 37.4, MCV 89.9, MCH 28.6, MCHC 31.8 L, Plt Count 215, MPV 10.8, Immature Gran % (Auto) 0.500, Neut % (Auto) 43.0 L, Lymph % (Auto) 45.5 H, Bradley % (Auto) 7.9, Eos % (Auto) 2.8, Baso % (Auto) 0.3, Absolute Neuts (auto) 4.5, Nucleated RBC % 0 12/07/20 05:52: Sodium 141, Potassium 3.8, Chloride 109 H, Carbon Dioxide 25.0, Anion Gap 7, BUN 11, Creatinine 0.95, Est GFR (MDRD) Af Amer 77, Est GFR (MDRD) Non-Af 64, BUN/Creatinine Ratio 11.6, Glucose 145 H, Calcium 8.7, Triglycerides 234 H, Cholesterol 187, LDL Cholesterol 104, VLDL Cholesterol 47 H, HDL Cholesterol 36 L Rhythm: EKG: Normal sinus rhythm with no acute changes ECHO: Stress Test: Cardiac Cath: PCI: CT Surgery: Holter monitor: EPS: PPM: CXR: Chest CT Scan: Radiography Diagnostic Testing: Radiology Impression Chest X-Ray 12/06/20 18:40 IMPRESSION: No acute radiographic abnormalities. Electronically Signed: Rolando Dickey MD at 19:00 EDT Tel , Service support , Chest CTA 12/06/20 18:51 IMPRESSION: No demonstrated pulmonary embolism or arterial dissection. Electronically Signed: Maile Jones MD at 19:52 EDT Tel , Service support ,
--- NOTE | 2020-12-07 13:41 | CL.D_ITS ---
Patient Name: GRETA CRAWLEY Study Date: 12/07/2020 Performing: Ehsan Alves MD Ht: 68.89 inches 175 cm : 1960 Wt: 240.3 lbs 109 kg Age: 60 Gender: female BSA: 2.23 PROCEDURE(S) PERFORMED [id number]/COR/LV CLINICAL PROFILE AND INDICATIONS Indications: New Onset Angina <= 2 months Heart Failure: None Stress/Imaging Date: 12/07/20ress Test with SPECT MPI: Positive Low Risk CAD Presentations: Unstable angina. CONCLUSIONS Normal coronary arteries Normal LV size, wall motion,and systolic function RECOMMENDATIONS Medical therapy DESCRIPTION OF PROCEDURE The patient arrived to the procedure lab. The risks and benefits of the procedure as well as a full d escription of our services here and current unavailability of surgical backup were fully explained to the patient and/or their significant other prior to the catheterization. The Timeout was completed, verifying the correct patient and procedure. The patient's procedural site was prepped and draped in the usual fashion. Local anesthetic was given subcutaneously to right radial region with Lidocaine 2% - nnagajothi. Using a modified Seldinger technique, arterial access was obtained via the right radial artery, a 6Fr sheath was inserted.-[id number] Right Coronary Artery selective angiography was then performed in multiple views using a 5 Fr. 4.0 Easley catheter. Left Coronary Artery selective angiogra phy was performed in multiple views using a 5 Fr. 4.0 Easley catheter. Left Ventriculography was perfo rmed in BARAJAS projection using a 5 Fr. Pigtail catheter. LV to AO pullback pressures were then recorded.The arterial sheath was pulled and a TR Band was applied for hemostasis-17 cc air CORONARY ANGIOGRAPHY DOMINANCE: Left Dominant LEFT HEART ASSESSMENT Left Ventricular Ejection Fraction: by LV Gram 60 % Normal LV wall motion Normal Left Ventricular systolic function Normal Left Ventricular systolic function LEFT MAIN: Angiographically normal LEFT ANTERIOR DESCENDING ARTERY: Angiographically normal CIRCUMFLEX ARTERY: Angiographically normal RIGHT CORONARY ARTERY: Angiographically normal COMPLICATIONS No Complications PROCEDURE MEDICATIONS Versed 1 mg IV Fentanyl 50 mcg IV Oxygen: 2 L/min via nasal cannula Heparin given IA 12/07/2020 13:16:30 Verapamil 2.5mg, Ntg 100mcgs, 2000 units of Heparin given IA 12/07/2020 13:16:30 SUMMARY OF HEMODYNAMIC DATA Time AIR REST ECG 13:04:56 Art 98/60 (73) 13:17:51 AO 97/69 (83) SA 13:19:43 LV 95/13, 18 13:27:16 LV 100/14, 19 13:27:23 LVp 94/15, 19 13:28:05 AOp 106/70 (85) 13:28:10 LV 94/15, 20 13:28:11 13:39:04 Signed By Ehsan Alves MD On 12/07/2020 13:39:57 Ehsan Alves MD
--- NOTE | 2020-12-07 13:52 | PCM.DC.SUM ---
Providers Date of Admission: 12/06/20 Primary Care Physician: Dr. Kun Hager DO Consultations 12/07/20 11:35 Consult: Cardiology Routine Consulting Provider: Ehsan Alves Reason for Consult: Chest pain, abnormal stress test EMERGENT Consult: No MD Notified: Yes Date Notified: 12/07/20 Time Notified: 11:35 Method of Notification: cortext Reason For Visit: CHEST PAIN Diagnosis Discharge Diagnosis (1) Chest pain: Status: Acute Code(s): R07.9 - Chest pain, unspecified Qualifiers: Chest pain type: unspecified Qualified Code(s): R07.9 - Chest pain, unspecified Medications at Discharge Home Medications lisinopril [Zestril] 40 mg PO DAILY 01/09/17 montelukast 10 mg PO DAILY 01/09/17 omeprazole 20 mg PO DAILY 01/09/17 metformin 500 mg PO DAILY #0 tab 12/07/20 Hospital Course Operations None Procedures Cardiac catheterization, EKG and Nuclear stress test Summary of Care Provided Minutes Spent on Discharge: 35 Hospital Course: Discharge diagnoses: 1. Chest pain, noncardiac with abnormal stress testing likely secondary to breast tissue attenuation with normal coronary arteries on cardiac catheterization 2. Hypertension 3. Diabetes mellitus type II 4. Obesity 5. Allergic rhinitis 6. Tobacco abuse 6. GERD Discharge summary: The patient is a 60 y/o F w/ PMHx: Obesity, Diabetes mellitus type II, HTN, Tobacco use, Allergic Rhinitis, GERD who presented to the [facility] ED on 12/06/20 with onset of chest discomfort. EKG in ED with sinus rhythm with incomplete right bundle branch block, CXR w/ no acute cardiopulmonary findings, initial trop unremarkable, D-dimer mildly elevated with follow-up CTPA with no evidence of dissection or embolism or acute cardiopulmonary findings. Patient was admitted to the PCU, maintained on monitor, serial cardiac enzymes x3 of remained unremarkable, EKGs with no acute changes noted. Patient underwent stress testing 12/07/2020 which was noted to be remarkable for inducible ischemia. Cardiology consulted and patient underwent 12/07/20 cardiac catheterization which demonstrated normal coronary arteries and abnormal stress testing was felt likely secondary to breast tissue attenuation. Given patient clinical status patient was discharged to home with recommended follow-up with her PCP. Did recommend hold for additional 48 hours patient Metformin given contrast usage. During admission strongly encourage tobacco cessation. Physical Examination: General: Awake, alert, oriented x 3 and cooperative, laying in the PCU bed, denies any current chest discomfort. Skin: Normal color, normal turgor, no icterus, no cyanosis. HEENT: AT/NC, EOMI, PERRLA, MMM, no carotid bruits or JVD noted. Lungs: Mildly diminished breath sounds, greater bases, appropriate effort, no rales, ronchi or wheezing. Heart: Regular rate and rhythm; no gallop, rub audible, some reproducible left upper chest discomfort with palpation. Abdomen: Soft, obese, NTTP, ND, mildly hyperactive BS. Extremities: No cyanosis, clubbing, or edema. Neurological: Patient awake, alert, oriented as noted, cognitive function intact; pupils equally reactive to light and accommodation, cranial nerves II-XII grossly normal, moving all 4 extremities, no focal deficits, strength preserved. Psychiatric: Affect appears fatigued otherwise normal, no acute evidence of depressive or anxiety feelings. Weight / BMI Weight Weight: 239 lb 6.752 oz Body Mass Index (BMI) 35.3 ABG / Lab / Microbiology Data Result Diagrams: 12/07/20 05:52 12/07/20 05:52 Laboratory: Laboratory Results - last 24 hr 12/06/20 18:00: WBC 15.5 H, RBC 4.70, Hgb 13.7, Hct 41.2, MCV 87.7, MCH 29.1, MCHC 33.3, RDW Std Deviation 39.9, RDW Coeff of Silvana 12.3, Plt Count 264, MPV 11.0, Immature Gran % (Auto) 0.400, Neut % (Auto) 46.3 L, Lymph % (Auto) 46.6 H, [place] % (Auto) 5.6, Eos % (Auto) 0.8, Baso % (Auto) 0.3, Absolute Neuts (auto) 7.2, Absolute Lymphs (auto) 7.22 H, Nucleated RBC % 0, Differential Comment SCANNED 12/06/20 18:00: D-Dimer Quant (PE/DVT) 0.55 H* 12/06/20 18:00: Sodium 138, Potassium 3.6, Chloride 104, Carbon Dioxide 22.0, Anion Gap 12, BUN 10, Creatinine 1.11 H, Estim Creat Clear Calc 57.03, Est GFR (MDRD) Af Amer 65, Est GFR (MDRD) Non-Af 53 L, BUN/Creatinine Ratio 9.0 L, Glucose 135 H, Calcium 9.9, Troponin I High Sens 10.3 12/06/20 20:56: Troponin I High Sens 9.9 12/06/20 22:46: POC Glucose 206 H 12/07/20 00:03: Troponin I High Sens 12.1 12/07/20 00:03: Magnesium 1.9 12/07/20 05:52: WBC 10.4, RBC 4.16 L, Hgb 11.9 L, Hct 37.4, MCV 89.9, MCH 28.6, MCHC 31.8 L, RDW Std Deviation 41.1, RDW Coeff of Silvana 12.5, Plt Count 215, MPV 10.8, Immature Gran % (Auto) 0.500, Neut % (Auto) 43.0 L, Lymph % (Auto) 45.5 H, [place] % (Auto) 7.9, Eos % (Auto) 2.8, Baso % (Auto) 0.3, Absolute Neuts (auto) 4.5, Absolute Lymphs (auto) 4.72 H, Nucleated RBC % 0 12/07/20 05:52: Sodium 141, Potassium 3.8, Chloride 109 H, Carbon Dioxide 25.0, Anion Gap 7, BUN 11, Creatinine 0.95, Estim Creat Clear Calc 66.64, Est GFR (MDRD) Af Amer 77, Est GFR (MDRD) Non-Af 64, BUN/Creatinine Ratio 11.6, Glucose 145 H, Calcium 8.7, Triglycerides 234 H, Cholesterol 187, LDL Cholesterol 104, VLDL Cholesterol 47 H, HDL Cholesterol 36 L 12/07/20 06:07: POC Glucose 155 H 12/07/20 11:28: POC Glucose 175 H Radiography Diagnostic Testing: Radiology Impression Chest X-Ray 12/06/20 18:40 IMPRESSION: No acute radiographic abnormalities. Electronically Signed: Rolando Dickey MD at 19:00 EDT Tel , Service support , Chest CTA 12/06/20 18:51 IMPRESSION: No demonstrated pulmonary embolism or arterial dissection. Electronically Signed: Maile Jones MD at 19:52 EDT Tel , Service support , Meaningful Use Info Meaningful Use Diagnoses (Choose all that apply): None applicable Discharge Plan Admission Admit Date/Time: 12/06/20 20:15 Primary Reason for Your Visit: Chest pain, non-cardiac Attending Provider: Caro Hester Primary Care Provider: Kun Hager Consulting Providers: Ehsan Alves Instructions Patient Instructions: ED Chest Pain, Noncardiac Additional Instructions / Restrictions: Please continue to hold your metformin given recent contrast application until 12/10/20. Please also appropriately oral hydrate given this usage as well. CHEST PAIN (NON-CARDIAC) The chest pain you experienced is not from your heart. Although the stress test was positive this was likely secondary to breast tissue as the follow-up cardiac catheterization demonstrated normal coronary arteries. The environmental monitoring specialist you wore showed no problem with the rhythm of your heart. Additionally, the cardiac enzyme series performed remained normal. Sometimes chest pain can come from a problem with the muscles or skeleton and/or associated with straining or doing some strenuous activity you do not normally perform. Generally Aleve or Motrin will help alleviate this discomfort if these medications are appropriate for you to take. Chest pain can also be associated with anxiety and with this you frequently have racing heart, trouble sleeping and irritability. It can also come from gastroesophageal reflux disease or heartburn. People who smoke experience increased heartburn because nicotine decreases the pressure in the lower esophageal sphincter and causes reflux. This type of discomfort is well treated with drinking a large glass of cold water which strips the acid out of the esophagus or taking Mylanta, Maalox or Pepto-Bismol. Other foods to avoid if you have reflux are chocolate, peppermint and calcium containing products such as Tums. Discharge Orders/Prescriptions Prescriptions: Continued omeprazole 20 MG capsule 20 mg PO DAILY RF: 0 montelukast 10 MG tablet 10 mg PO DAILY RF: 0 lisinopril [Zestril] 40 MG tablet 40 mg PO DAILY RF: 0 metformin 500 MG tablet 500 mg PO DAILY Qty: 0 RF: 0 Referrals / Follow Up: Kun Hager DO [Primary Care Provider] - (Follow-up with your PCP within 3-5 days to review admission.) Disposition Disposition (needs filled in before D/C Order can be placed): Home, Self Care Charges/Coding Visit Charges OBSV E&M: 67856 Observation care discharge
--- NOTE | 2020-12-07 14:02 | PHA.DC.MR ---
Pharmacy Service has performed discharge medication reconciliation for this patient. The patient's discharge medication list was reviewed for discrepancies and discrepancies were resolved. Home Medications lisinopril [Zestril] 40 mg PO DAILY 01/09/17 montelukast 10 mg PO DAILY 01/09/17 omeprazole 20 mg PO DAILY 01/09/17 metformin 500 mg PO DAILY #0 tab 12/07/20
== END 2020-12-07 13:48 | disposition home or self-care (01) ==
LOC: ED 20:04 → PCU 20:18
PROVIDERS: Admitting Provider Hospitalist; Emergency Provider Emergency Medicine; PCP Student in an Organized Health Care Education/Training Program; Visit Provider Family Medicine
DX: R07.89 Other chest pain (principal); Z86.718 Personal history of other venous thrombosis and embolism; Z79.84 Long term (current) use of oral hypoglycemic drugs; Z79.899 Other long term (current) drug therapy; F17.210 Nicotine dependence, cigarettes, uncomplicated; E11.22 Type 2 diabetes mellitus with diabetic chronic kidney disease; K21.9 Gastro-esophageal reflux disease without esophagitis; I12.9 Hypertensive chronic kidney disease with stage 1 through stage 4 chronic kidney disease, or unspecified chronic kidney disease; N18.31 Chronic kidney disease, stage 3a; E11.65 Type 2 diabetes mellitus with hyperglycemia; E66.9 Obesity, unspecified; Z68.35 Body mass index [BMI] 35.0-35.9, adult; R94.30 Abnormal result of cardiovascular function study, unspecified; R94.39 Abnormal result of other cardiovascular function study
CPT/HCPCS: 36415; 71045; 71275; 78452; 80048; 80061; 82962; 83735; 84484; 85025; 85379; 93005; 93017; 93306; 93458; 96360; 96361; 99152; 99153; 99218; 99285; 99406; A9500; J7030; Q9957; Q9967; A4216; C1769; C1894; C8929; G0378; J2785; J3490

== ENCOUNTER 2021-08-27 15:30 | Outpatient (RCR) | payer OTHER, SELFPAY ==
--- NOTE | 2021-08-06 15:57 | HP.PTEVAL_ITS ---
Patient's Visit Information GRETA CRAWLEY is a 61 year old F referred to Physical Therapy by Dr. Valdez Perera MD with a diagnosis of DISLOCATED OF SHOULDER. Date of Evaluation: 08/06/21 Physical Therapist: Torsten Musa PT, Cert MDT, OCS - Visit Plan Frequency: 1x/Week Duration: 6 Weeks Plan: PT INTERVETIONS PHASE 2 AAROM/AROM ,LIGHT RTC/SCAPULAR STRENGTHENING/ISOMTRICS AND POSTURAL EX'S AND MODLATIES ASNEED - Subjective This 61 y/o female presents to physical therapy with dislocation of shoulder . Patient fell right shoulder Jul 11 on ice landed on right shoulder . Patient developed pain ER [place] x-rays -. Patient placed in sling ,seen Family DR who recommended DR at [facility] Dr Perera. Patient had x-rays showed some abnormalities and had MRI which showed partial dislocation shoulder. Patient pain lateral deltoid . Described ache. Pain in shoulder impairs functional tasks and ADL's overhead tasks. Denies paresthesia/tingling. Patient has difficulty sleeping at night. Patient shoulder impairs function. SOCAIL: . VOCATION: [employer] - Pain Right Shoulder Pain Intensity (Out of 10): 2 - Objective POSTURE: mild forward posture. NEURO: denies paresthesia/tingling. PALPATION: tender AC ,anterior long head. AROM SHOULDER: flexion 160 degrees, abduction 130 in scapation, ER 90 ,IR L3. MMT( peak force) : infraspinatus 15.2 sore, subscapularis 25 ,supraspinatus 10.0 pain ,deltoid 9.8 - Special Tests R Shoulder External Rotation Lag Test - RC Tear: Negative R Shoulder Supine Impingement Test - RC Tear: Negative R Shoulder Lift Off Test - Subscapular Tear: Negative R Shoulder Drop Sign - IS Test: Negative R Shoulder Empty Can - SS: Positive R Shoulder Belly Press - SupScap: Negative R Shoulder Neer - Impingement: Positive R Shoulder Dai Jamar - Impingement: Positive R Shoulder Apprehension Test - Anterior Instability: Negative - Goals Goal 1:: Patient to be I with HEP Goal Time Frame: 4-6 Weeks Goal 2:: Patient to improve AROM symmetrical right compared to left to improve function OH Goal Time Frame: 4-6 Weeks Goal 3:: Patient to increase strength RTC and deltoid by 10.0 peak force to improve function and ADL's Goal Time Frame: 4-6 Weeks Goal 4:: Patient to decrease pain with functional activities above 90 degrees for housework tasks . Goal Time Frame: 4-6 Weeks Goal 5:: Patient to improve quick dash by 5 points or to improve function and QOL Goal Time Frame: 4-6 Weeks - Rehabilitation Potential Physical Therapy Diagnosis: This patient has right shoulder had partial dislocation of GH with pain ,decrease AROM ,weakness thus benefit from skilled PT to improve function with right UE Rehabilitation Potential: Good - Anticipated Interventions Patient/Client Instruction: Educate patient on: Condition, Plan of Care For the Purpose of:: To decrease pain, To increase ROM, To improve muscle performance and motor function, To improve ability to perform ADL's, To increase tolerance to activity/condition/position, To improve ability of physical actions for home/community/work/leisure, To improve health of tissue, To decrease soft tissue restriction, To increase flexibility/ROM, To reduce risk of recurrence, To improve tolerance to ADL's Therapeutic Exercise to Include: Strength training, Postural training, Flexibi lty training, Active ROM Comment: RTC For the Purpose of:: To decrease pain, To increase ROM, To improve muscle performance and motor function, To improve ability to perform ADL's, To increase tolerance to activity/condition/position, To improve ability of physical actions for home/community/work/leisure, To improve gait and locomotor functions, To improve health of tissue, To decrease soft tissue restriction, To improve endurance TENS: Yes IF ES: Yes Cryotherapy (ice pack, ice massage): Yes Thermo therapy (hot pack): Yes Ultrasound (thermal/non thermal): Yes For the Purpose of:: To decrease pain, To increase ROM, To improve nutrient delivery to tissue, To increase oxygenation perfusion, To improve health of tissue, To decrease soft tissue restriction Thank you for the opportunity to evaluate your patient. For Medicare and Medicare HMO plans, please review the plan of care and approve it. It will need to be FAXED BACK to us at [phone] for Medicare purposes. For Medicare only, by signing this I certify the plan of care. Please let me know if there are questions or concerns regarding this plan of care. Physician Signature: Date:
--- NOTE | 2022-02-02 13:19 | HP.PT.NRP ---
GRETA CRAWLEY was seen in my office for initial evaluation on 08/06/21. The following Plan of Care was established for this patient: Initial Frequency: 1x/Week Initial Duration: 6 Weeks Patient/Client Instruction: Educate patient on: Condition, Plan of Care For the Purpose of:: To decrease pain, To increase ROM, To improve muscle performance and motor function, To improve ability to perform ADL's, To increase tolerance to activity/condition/position, To improve ability of physical actions for home/community/work/leisure, To improve health of tissue, To decrease soft tissue restriction, To increase flexibility/ROM, To reduce risk of recurrence, To improve tolerance to ADL's Therapeutic Exercise to Include: Strength training, Postural training, Flexibilty training, Active ROM For the Purpose of:: To decrease pain, To increase ROM, To improve muscle performance and motor function, To improve ability to perform ADL's, To increase tolerance to activity/condition/position, To improve ability of physical actions for home/community/work/leisure, To improve gait and locomotor functions, To improve health of tissue, To decrease soft tissue restriction, To improve endurance TENS: Yes IF ES: Yes Cryotherapy (ice pack, ice massage): Yes Thermo therapy (hot pack): Yes Ultrasound (thermal/non thermal): Yes For the Purpose of:: To decrease pain, To increase ROM, To improve nutrient delivery to tissue, To increase oxygenation perfusion, To improve health of tissue, To decrease soft tissue restriction This patient was last seen in our office . Pertinent comments regarding their Physical therapy will appear below: At this point I will be discontinuing this patient from physical therapy. I would be happy to see this patient again in the future if found appropriate by the physician. Thank you! Torsten Musa, PT, Cert MDT, OCS Balance/Gait/Functional tests - Balance/Special Test Scores Quick DASH Score: 2.2725
== END 2021-08-27 19:00 | disposition home or self-care (01) ==
LOC: PT 15:30
PROVIDERS: PCP Student in an Organized Health Care Education/Training Program; Referring Provider Orthopaedic Surgery; Visit Provider Orthopaedic Surgery
DX: X58.XXXD Exposure to other specified factors, subsequent encounter; S42.141D Displaced fracture of glenoid cavity of scapula, right shoulder, subsequent encounter for fracture with routine healing
CPT/HCPCS: 97110; 97162

== ENCOUNTER 2022-03-10 05:27 | Day surgery (SDC) | payer OTHER, SELFPAY ==
[2022-03-10 06:13] VITALS: BP 105/72; PULSE 98; RESP 16; TEMP 36.3; O2SAT 96; BMI 33.0
[2022-03-10] MEDS: Lactated Ringers 1,000 ML 15 ML IV (06:17)
[2022-03-10 06:21] LABS: Bedside Glucose 170 mg/dL (74-106)
--- NOTE | 2022-03-10 06:30 | COLBX_PTH ---
PATIENT: GRETA CRAWLEY LOC: EN U#:[id number] AGE/SX: 61/F ROOM: RE03/10/[address]: Dr. Rodo Payan DO : 1960 BED: DIS: 03/10/2022 SPEC #: [id number] RECD: 03/10/22 12:30 STATUS: GABY RECholo #: [id number] KIM: 03/10/22 06:[address]: Rodo Payan DEPT: SURGICAL PATHOLOGY RECD BY: Cain Hull ENTERED: 03/10/22 13:09 SP TYPE: COLON BX OTHR DR: Dr. Kun Hager DO Tissues: A - Esophagus, NOS B - Descending colon C - Sigmoid colon biopsy Procedures: Special Stain Group II Surgery Specimen Level IV Alcian Blue/PAS (control) HEADER OPERATION: Colonoscopy, EGD (MAC), biopsy, gold probe PRE-OP DIAGNOSIS: Screening, GERD TISSUE SUBMITTED: A ? Distal esophagus biopsy, B ? Descending colon polyp biopsy (possible inverted tic), C ? Sigmoid colon polyp biopsy MICROSCOPIC DIAGNOSIS A. Distal esophagus, biopsy: Gastroesophageal junctional mucosa with chronic inflammation. Focal changes of reflux. No evidence of goblet cell metaplasia. See comment. B. Descending colon polyp, biopsy: No pathologic change. C. Sigmoid colon polyp, biopsy: Fragments of benign colonic mucosa. See comment. AM:salvador 03/11/2022 COMMENT A. Alcian blue/PAS stain with matched control supports the above diagnosis. C. Neither hyperplastic nor adenomatous change is identified. Clinical correlation is suggested. MICROSCOPIC DESCRIPTION Slides are reviewed. GROSS DESCRIPTION A - Received in fixative is one container labeled with the patient's name and designated distal esophagus biopsy. The specimen consists of two irregular fragments of light pabon soft tissue that in aggregate measure 0.6 x 0.5 x 0.1 cm. The specimen is totally submitted in one cassette. B - Received in fixative is one container labeled with the patient's name and designated descending colon polyp biopsy. The specimen consists of multiple irregular fragments of light pabon soft tissue that in aggregate measure 1 x 0.5 x 0.1 cm. The specimen is totally submitted in one cassette. C - Received in fixative is one container labeled with the patient's name and designated sigmoid colon polyp biopsy. The specimen consists of two irregular fragments of light pabon soft tissue that in aggregate measure 1 x 0.5 x 0.1 cm. The specimen is totally submitted in one cassette. / AM:salvador 03/10/2022 TC:3 CPT: 85099 x3, 70672
--- NOTE | 2022-03-10 06:34 | HP.PCM_ITS ---
History and Physical Date of Admission: 03/10/22 NIECY CRAWLEY, is a 61 F who presents to the office today for?Initial consult. Niecy established with this clinic 12.03.21 with referral from PCP for evaluation of chronic GERD which is well managed with use of omeprazole 20mg QD. This has been taken for many years. Admits to breakthrough symptoms with known food triggers which she attempts to avoid. Currently smoking cigarettes ?-1 pack a day. She has not had an EGD and is due for screening colonoscopy; last colonoscopy about 15 years prior with reported normal results. PMH DMII; HTN; hyperlipidemia; decreased GFR. PSH appendectomy ; tubal ligation; cholecystectomy ROS Const Constitutional: No anorexia, fatigue, fever(s), weight change or sleep problems Eyes Eyes: No change in vision ENT ENT: No abnormal hearing, difficulty swallowing, mouth lesions, tongue swelling or throat swelling Resp Respiratory: No cough or shortness of breath Cardio Cardiology: No chest pain at rest, chest pain with exertion, shortness of breath or dyspnea on exertion Gastro GI: No difficulty swallowing Genitourinary-Female: No difficulty urinating or burning urination Musc Musculoskeletal: No joint pain, joint swelling, muscle weakness or decreased muscle mass Skin Skin: No hair loss in leg, yellowing of the eye, itchy eyes, rash, skin ulcer or skin swelling Neuro Neurology: No abnormal hearing, abnormal movements, confusion, unsteady gait/ balance or memory loss Psych Psychiatric: No anxiety, No confusion and No memory loss Endo Endocrine: No fatigue or weight change Aller/Imm Allergy/Immunologic: No itchy eyes, throat swelling or tongue swelling John/Lymp Hematologic/Lymphatic: No easy bleeding, easy bruising or enlarged lymph nodes Exam Const General: cooperative and comfortable Nutritional Appearance: average body habitus and well nourished [facility] Head: normal to inspection Ears: hearing grossly normal bilaterally Nose: external nose normal Face and sinus: normal facial exam Mouth: oral mucosae normal Throat: posterior oropharynx normal Eyes General: appearance normal, both eyes and all related structures Neck Neck: normal visual inspection Chest Chest palpation & inspection: normal inspection of the chest and normal palpation of entire chest wall Resp Effort & Inspection: normal respiratory effort Auscultation: Bilateral: Clear to Auscultation Cardio Palpation: normal PMI Rate: regular rate Rhythm: regular rhythm GI Inspection: normal to inspection Auscultation: normal bowel sounds Percussion: normal to percussion Palpation: no hepatosplenomegaly Skin General: no rashes or lesions noted Neuro General: patient alert Extrem General: normal to inspection Psych Affect: normal affect Quality Reporting Tobacco Screening ([facility] 138) Smoking Status: Current every day smoker Assessment and Plan Assessment and Plan (1) Screening for colon cancer: ?Status:?Acute ?Plan: She will undergo screening colonoscopy.? She was explained alternatives, risk, benefits including outstanding bleeding, infection, sepsis, perforation, need for additional .? Have an ASA 1. (2) GERD (gastroesophageal reflux disease): ?Status:?Acute ?Plan: She had a history of gastroesophageal reflux disease requiring medication for years.? She should screening for Tobin's esophagus.? We were able to do the upper endoscopy prior to the colonoscopy.? Depending on what we see on her upper endoscopy further recommendations will follow.? Oh I have re-examined the patient. There are no clinical changes since date of exam.
[2022-03-10 07:11] VITALS: BP 105/87; BP 88/60; PULSE 92; RESP 18; TEMP 36.5; O2SAT 100
--- NOTE | 2022-03-10 07:12 | OP.EGD_ITS ---
Patient Name: Niecy Justin Procedure Date: 03/10/2022 6:14 AM Date of : 1960 Age: 61 Procedure: Upper GI endoscopy Indications: Functional Dyspepsia, Heartburn Providers: Rodo Payan DO Medicines: Monitored Anesthesia Care Patient Profile: This is a 61 year old female. Refer to note in patient chart for documentation of history and physical. Patient has symptoms of chronic heartburn and chronic nausea. Complications: No immediate complications. Procedure: Pre-Anesthesia Assessment: - Prior to the procedure, a History and Physical was performed, and patient medications and allergies were reviewed. The risks and benefits of the procedure and the sedation options and risks were discussed with the patient. All questions were answered and informed consent was obtained. Patient identification and proposed procedure were verified by the physician in the pre-procedure area. Mental Status Examination: alert and oriented. Airway Examination: normal oropharyngeal airway and neck mobility. Respiratory Examination: clear to auscultation. CV Examination: normal. Prophylactic Antibiotics: The patient does not require prophylactic antibiotics. Prior Anticoagulants: The patient has taken no previous anticoagulant or antiplatelet agents. ASA Grade Assessment: II - A patient with mild systemic disease. After reviewing the risks and benefits, the patient was deemed in satisfactory condition to undergo the procedure. The anesthesia plan was to use monitored anesthesia care (MAC). Immediately prior to administration of medications, the patient was re-assessed for adequacy to receive sedatives. The heart rate, respiratory rate, oxygen saturations, blood pressure, adequacy of pulmonary ventilation, and response to care were monitored throughout the procedure. The physical status of the patient was re-assessed after the procedure. After obtaining informed consent, the endoscope was passed under direct vision. Throughout the procedure, the patient's blood pressure, pulse, and oxygen saturations were monitored continuously. The colonoscope was introduced through the mouth, and advanced to the second part of duodenum. The upper GI endoscopy was accomplished without difficulty. The patient tolerated the procedure well. Scope In: 6:41:43 AM Scope Out: 6:45:23 AM Total Procedure Duration Time 0 hours 3 minutes 40 seconds Findings: The Z-line was irregular and was found 39 cm from the incisors. Biopsies were taken with a cold forceps for histology. Verification of patient identification for the specimen was done. Estimated blood loss was minimal. A medium-sized hiatal hernia was present. Multiple 5 mm sessile polyps with no bleeding and no stigmata of recent bleeding were found in the gastric fundus. No gross lesions were noted in the second portion of the duodenum. Impression: - Z-line irregular, 39 cm from the incisors. Biopsied. - Medium-sized hiatal hernia. - Multiple gastric polyps. - No gross lesions in the second portion of the duodenum. Recommendation: - Discharge patient to home. - Resume previous diet. - Continue present medications. Procedure Code(s): --- Professional --- 54867, Esophagogastroduodenoscopy, flexible, transoral; with biopsy, single or multiple CPT copyright 2017 [employer]. All rights reserved. The codes documented in this report are preliminary and upon photographic intelligence officer review may be revised to meet current compliance requirements. Rodo Payan DO 03/10/2022 7:11:52 AM This report has been signed electronically. Number of Addenda: 0 Note Initiated On: 03/10/2022 6:14 AM
--- NOTE | 2022-03-10 07:13 | OP.CCLET_ITS ---
03/10/2022 Kun Hager Do Re : Upper GI endoscopy procedure for Niecy Perezr Harjitsid This procedure was performed on February. My impressions and recommendations are as follows: Impressions : - Z-line irregular, 39 cm from the incisors. Biopsied. - Medium-sized hiatal hernia. - Multiple gastric polyps. - No gross lesions in the second portion of the duodenum. Recommendations : - Discharge patient to home. - Resume previous diet. - Continue present medications. My findings are described in the full procedure note, which is enclosed. If I can be of further assistance, please feel free to contact me at . Sincerely, Rodo Payan DO 03/10/2022 7:11:52 AM This report has been signed electronically.
[2022-03-10 07:16] VITALS: BP 103/66; BP 105/87; PULSE 93; RESP 16; O2SAT 100
--- NOTE | 2022-03-10 07:16 | OP.CCLET_ITS ---
03/10/2022 Kun Hager Do Re : Colonoscopy procedure for Niecy Perezr Alley This procedure was performed on February. My impressions and recommendations are as follows: Impressions : - Moderate diverticulosis in the recto-sigmoid colon, in the sigmoid colon, in the descending colon and at the splenic flexure. There was no evidence of diverticular bleeding. - Two 1 to 2 mm polyps in the sigmoid colon and in the descending colon, removed with a cold biopsy forceps. Resected and retrieved. - A single bleeding colonic angiodysplastic lesion. Treated with a heater probe. Recommendations : - Discharge patient to home. - Resume previous diet. - Continue present medications. - Await pathology results. - Repeat colonoscopy in 5 years for surveillance. - Return to GI office. My findings are described in the full procedure note, which is enclosed. If I can be of further assistance, please feel free to contact me at . Sincerely, Rodo Payan DO 03/10/2022 7:15:57 AM This report has been signed electronically.
--- NOTE | 2022-03-10 07:16 | OP.COLON_ITS ---
Patient Name: Niecy Justin Procedure Date: 03/10/2022 6:45 AM Date of : 1960 Age: 61 Procedure: Colonoscopy Indications: Screening for colorectal malignant neoplasm Providers: Rodo Payan DO Medicines: Monitored Anesthesia Care Patient Profile: This is a 61 year old female. Refer to note in patient chart for documentation of history and physical. Patient has symptoms of chronic heartburn and chronic nausea. Last Colonoscopy: more than 10 years ago. Complications: No immediate complications. Procedure: Pre-Anesthesia Assessment: - Prior to the procedure, a History and Physical was performed, and patient medications and allergies were reviewed. The risks and benefits of the procedure and the sedation options and risks were discussed with the patient. All questions were answered and informed consent was obtained. Patient identification and proposed procedure were verified by the physician in the pre-procedure area. Mental Status Examination: alert and oriented. Airway Examination: normal oropharyngeal airway and neck mobility. Respiratory Examination: clear to auscultation. CV Examination: normal. Prophylactic Antibiotics: The patient does not require prophylactic antibiotics. Prior Anticoagulants: The patient has taken no previous anticoagulant or antiplatelet agents. ASA Grade Assessment: II - A patient with mild systemic disease. After reviewing the risks and benefits, the patient was deemed in satisfactory condition to undergo the procedure. The anesthesia plan was to use monitored anesthesia care (MAC). Immediately prior to administration of medications, the patient was re-assessed for adequacy to receive sedatives. The heart rate, respiratory rate, oxygen saturations, blood pressure, adequacy of pulmonary ventilation, and response to care were monitored throughout the procedure. The physical status of the patient was re-assessed after the procedure. After I obtained informed consent, the scope was passed under direct vision. Throughout the procedure, the patient's blood pressure, pulse, and oxygen saturations were monitored continuously. The colonoscope was introduced through the anus and advanced to the cecum, identified by appendiceal orifice and ileocecal valve. The colonoscopy was performed without difficulty. The patient tolerated the procedure well. The quality of the bowel preparation was good. Scope In: 6:47:49 AM Scope Withdrawal Time 0 hours 13 minutes 54 seconds Scope Out: 7:04:58 AM Total Procedure Duration Time 0 hours 17 minutes 9 seconds Findings: The perianal and digital rectal examinations were normal. Multiple small and large-mouthed diverticula were found in the recto-sigmoid colon, sigmoid colon, descending colon and splenic flexure. There was no evidence of diverticular bleeding. Two sessile polyps were found in the sigmoid colon and descending colon. The polyps were 1 to 2 mm in size. These polyps were removed with a cold biopsy forceps. Resection and retrieval were complete. Verification of patient identification for the specimen was done. Estimated blood loss was minimal. A single medium-sized localized angiodysplastic lesion with bleeding was found in the cecum. Coagulation for bleeding prevention using heater probe was successful. Estimated blood loss was minimal. Impression: - Moderate diverticulosis in the recto-sigmoid colon, in the sigmoid colon, in the descending colon and at the splenic flexure. There was no evidence of diverticular bleeding. - Two 1 to 2 mm polyps in the sigmoid colon and in the descending colon, removed with a cold biopsy forceps. Resected and retrieved. - A single bleeding colonic angiodysplastic lesion. Treated with a heater probe. Recommendation: - Discharge patient to home. - Resume previous diet. - Continue present medications. - Await pathology results. - Repeat colonoscopy in 5 years for surveillance. - Return to GI office. Procedure Code(s): --- Professional --- 03529, 59, Colonoscopy, flexible; with control of bleeding, any method 20203, Colonoscopy, flexible; with biopsy, single or multiple CPT copyright 2017 [employer]. All rights reserved. The codes documented in this report are preliminary and upon blast furnace helper review may be revised to meet current compliance requirements. Rodo Payan DO 03/10/2022 7:15:57 AM This report has been signed electronically. Number of Addenda: 0 Note Initiated On: 03/10/2022 6:45 AM
[2022-03-10 07:21] VITALS: BP 101/65; BP 105/87; PULSE 91; RESP 16; O2SAT 100
[2022-03-10 07:26] VITALS: BP 105/87; BP 97/80; PULSE 90; RESP 16; TEMP 36.3; O2SAT 100
[2022-03-10 07:35] VITALS: BP 105/87
== END 2022-03-10 07:39 | disposition home or self-care (01) ==
LOC: EN 05:28 → AC 05:29
PROVIDERS: PCP Student in an Organized Health Care Education/Training Program; Referring Provider Student in an Organized Health Care Education/Training Program; Visit Provider Internal Medicine Gastroenterology
PROC: 0DJD8ZZ Inspection of Lower Intestinal Tract, Via Natural or Artificial Opening Endoscopic (ICD-10-PCS; CPT 45378; principal; 2022-03-10 06:25)
DX: Z12.11 Encounter for screening for malignant neoplasm of colon (principal); E11.9 Type 2 diabetes mellitus without complications; K31.7 Polyp of stomach and duodenum; K44.9 Diaphragmatic hernia without obstruction or gangrene; K57.30 Diverticulosis of large intestine without perforation or abscess without bleeding; K21.9 Gastro-esophageal reflux disease without esophagitis; K63.5 Polyp of colon; Z79.84 Long term (current) use of oral hypoglycemic drugs; Z79.899 Other long term (current) drug therapy; E78.00 Pure hypercholesterolemia, unspecified; I10 Essential (primary) hypertension; Z78.0 Asymptomatic menopausal state; F17.210 Nicotine dependence, cigarettes, uncomplicated; K55.20 Angiodysplasia of colon without hemorrhage
CPT/HCPCS: 45380; 45382; 43239; 82962; 88305; 88313; J7120; J2405

== ENCOUNTER 2023-05-19 17:13 | Emergency (ER) | payer OTHER, SELFPAY ==
[2023-05-19 17:14] VITALS: BP 187/95; PULSE 79; RESP 16; TEMP 36.3; O2SAT 97; BMI 31.1
--- NOTE | 2023-05-19 17:30 | CT_ITS ---
INDICATION: trauma EXAMINATION: CT FACIAL BONES - CT Maxillofacial W/O Contrast Injection TECHNIQUE: Helically acquired images were obtained of the facial bones. A radiation dose optimization technique was used for this scan. IV Contrast dosage and agent: None. RADIATION DOSAGE (If Supplied By Facility): CTDIvol = ( 29.38 ) mGy, DLP = ( 547.46 ) mGycm COMPARISON: FINDINGS: SOFT TISSUES: No focal subcutaneous swelling. No discrete fluid collections. VISUALIZED PARANASAL SINUSES: Clear. VISUALIZED MASTOID AIR CELLS: Clear. FACIAL BONES, MANDIBLE AND TMJs: No displaced facial bone fracture. No lytic or blastic abnormality. VISUALIZED DENTITION: No periodontal osseous erosion. ORBITAL CONTENTS: Both globes, extraocular muscles and retrobulbar fat appear unremarkable. CT/Sinus/Facial Bone IMPRESSION: No acute bony injury of the facial bones. Electronically Signed: Jose Armando Rivero DO at 17:59 EST Reading Location ID and State: [facility] / [place] Tel [phone], Service support ,
--- NOTE | 2023-05-19 17:30 | CT_ITS ---
STUDY: CT BRAIN WITHOUT CONTRAST REASON FOR EXAM: Female, 63 years old. Trauma RADIATION DOSAGE (If Supplied By Facility): CTDIvol = ( 44.99 ) mGy, DLP = ( 812.98 ) mGycm TECHNIQUE: Transaxial CT imaging of the brain was performed without administration of intravenous contrast material. Individualized dose optimization techniques were used for this CT. COMPARISON: No relevant priors. FINDINGS: Normal soft tissue structures. Normal calvarium. Normal size ventricles and extra-axial spaces for the patient''s age. Normal white matter tracts of the cerebral hemispheres. Normal basal ganglia and thalami. Normal brainstem. Normal cerebellum. There is no intracranial hemorrhage. There are no findings of an acute ischemic infarction. Normal visualized paranasal sinuses. CT/Brain/Head without Contrast IMPRESSION: Normal unenhanced CT scan of the brain. Electronically Signed: Jose Armando Rivero DO at 17:54 EST ,
--- NOTE | 2023-05-19 17:30 | CT_ITS ---
STUDY: CT CERVICAL SPINE WITHOUT CONTRAST REASON FOR EXAM: Female, 63 years old. Trauma RADIATION DOSAGE (If Supplied By Facility): CTDIvol = ( 24.54 ) mGy, DLP = ( 534.69 ) mGycm TECHNIQUE: High resolution transaxial imaging was performed without contrast material. Sagittal and coronal images were reconstructed. Individualized dose optimization techniques were used for this CT. COMPARISON: None FINDINGS: Normal craniovertebral junction. Normal anterior atlantoaxial articulation. Normal odontoid process. Normal cervical lordosis. Normal vertebral bodies and posterior osseous elements. C2-3: Normal endplates. Normal disc height and morphology. Normal central canal and intervertebral neuroforamina. C3-4: Normal endplates. Normal disc height and morphology. Normal central canal and intervertebral neuroforamina. C4-5: Mild spurring at the endplates. Slightly narrowed disc height. Normal central canal. Uncovertebral spurring slightly narrowing the intervertebral neuroforamina, left more than right. C5-6: Normal endplates. Normal disc height and morphology. Normal central canal and intervertebral neuroforamina. C6-7: Normal endplates. Normal disc height and morphology. Normal central canal and intervertebral neuroforamina. C7-T1: Normal endplates. Normal disc height and morphology. Normal central canal and intervertebral neuroforamina. Normal visualized soft tissue structures. CT/Spine Cervical without Contras IMPRESSION: Mild degenerative changes of the cervical spine. Electronically Signed: Jose Armando Rivero DO at 18:14 EST Reading Location ID and State: [facility] / [place] Tel [phone], Service support ,
--- NOTE | 2023-05-19 17:31 | RAD_ITS ---
INDICATION: INJURY EXAMINATION/TECHNIQUE: X-RAY - LEFT XR Knee 4 VIEWS COMPARISON: FINDINGS: SOFT TISSUES: No soft tissue swelling or gas. No radiopaque foreign body. BONES/JOINTS: No acute fracture or subluxation.. Normal alignment. Preservation of the joint space.. No sclerotic or destructive changes observed. RAD/Knee 4 or More Views IMPRESSION: No acute bony injury. Electronically Signed: Jose Armando Rivero DO at 18:26 EST ,
--- NOTE | 2023-05-19 17:32 | ED.VIS.FALL ---
HPI HPI - Fall History of Present Illness Chief Complaint: Fall Informant: patient Occured/Mechanism Occurred: Today Narrative Narrative: Patient presents after fall. She states she tripped over a guidewire and fell forward hitting her knees and her chin. She has a laceration to the lower lip. She states that her teeth are aching but not loose. She did not lose consciousness. She states that her tetanus shot is up-to-date. She is not on anticoagulants. [facility] Medical History (Updated 05/19/23 @ 19:[address] Annika Miranda MD) Candidal intertrigo Chest pain in adult Decreased GFR Diabetes mellitus, type 2 GERD (gastroesophageal reflux disease) History of echocardiogram History of stress test History of thyroid nodule Hyperlipidemia Hypermetropia, bilateral Hypertension Left knee injury Left lower quadrant abdominal mass Post-menopausal Screening for colon cancer Smoker Wears glasses Home Medications lisinopril 40 mg tablet (Zestril) 40 mg PO DAILY 01/09/17 [History Last Taken 03/10/22] montelukast 10 mg tablet 10 mg PO DAILY 01/09/17 [History Last Taken 12/06/20] omeprazole 20 mg capsule,delayed release 20 mg PO DAILY 01/09/17 [History Last Taken 03/10/22] metformin 500 mg tablet 500 mg PO DAILY #0 tabs 12/07/20 [Rx Last Taken 12/06/20] ciclopirox 0.77 % topical cream 1 applic topical BID 10/15/21 [History Last Taken Unknown] dapagliflozin propanediol 10 mg tablet (Farxiga) 10 mg PO DAILY 10/15/21 [History Last Taken Unknown] icosapent ethyl 1 gram capsule (Vascepa) 2 g PO BID 10/15/21 [History Last Taken Unknown] semaglutide 0.25 mg or 0.5 mg (2 mg/1.5 mL) subcutaneous pen injector (Ozempic) 2.5 mg subcut FR 03/07/22 [History Last Taken Unknown] clindamycin HCl 300 mg capsule 300 mg PO BID 7 days #14 caps 05/19/23 [Rx Last Taken Unknown] tramadol 50 mg tablet 50 mg PO Q6H PRN pain #14 tabs 05/19/23 [Rx Last Taken Unknown] Allergy/AdvReac Type Severity Reaction Status Date / Time latex Allergy Severe Other Verified 03/23/22 11:46 aspirin [ASA] Allergy Unknown Verified 03/23/22 11:46 codeine Allergy Unknown Verified 03/23/22 11:46 Family History Mother Thyroid disorder CVA (cerebral vascular accident) Hypertension Father CVA (cerebral vascular accident) Heart disease Brother Diabetes Surgical History H/O tubal ligation History of ankle surgery History of appendectomy History of cardiac catheterization History of carpal tunnel release History of dilatation and curettage History of left heart catheterization (12/07/20) Hx of cholecystectomy Social History Smoking Status: Current every day smoker tobacco type: cigarettes alcohol intake: current ROS ROS ED Constitutional Constitutional ED: Denies chills or fever(s) Eyes Eyes: Denies change in vision or discharge from eye(s) ENT ENT ED: Reports other Details: Laceration to the lower lip. ; Denies discharge from eye(s), rhinorrhea or sore throat Cardiovascular Cardiovascular: Denies chest pain or palpitations Respiratory/Chest Respiratory/Chest: Denies cough or dyspnea Gastrointestinal Gastrointestinal: Denies abdominal pain, nausea or vomiting Musculoskeletal Musculoskeletal: Reports neck pain; Denies back pain or extremity pain Integumentary Denies Abrasions or rash Neurologic Neurologic: Denies headache(s) or weakness Psychiatric Psychiatric: Denies anxiety or depression Endocrine Endocrinology: Denies polydipsia or polyuria Allergic/Immunologic Allergic/Immunologic ED: Denies urticaria EXAM Physical Exam Const Vital Signs: 05/19/23 17:14 05/19/23 17:19 Temperature 97.4 F L Temperature Source Temporal Pulse Rate 79 Respiratory Rate 16 Respiratory Effort Normal Respiratory Depth Normal Respiratory Pattern Normal Blood Pressure 187/95 H Blood Pressure Mean 125 Pulse Ox 97 Oxygen Delivery Method Room Air Positive well nourished and well developed General Appearance ED: well developed HEENT HEENT Narrative: 1.5 cm laceration to the lower lip. It does not cross the vermilion border. Teeth are stable on exam. No tongue injury noted. Eyes EOMs intact bilaterally Neck full ROM Neck Narrative: No reproducible C-spine tenderness. Chest Wall inspection of chest normal and palpation of chest normal Resp normal respiratory effort and clear to auscultation bilaterally Cardio regular rate and regular rhythm GI non-tender Extremity Extremity Narrative: Mild tenderness with edema to the anterior knees bilaterally. Good range of motion. Strong distal pulses. Neuro oriented x3 and moves all extremities Psych mental status grossly normal MDM MDM MDM Narrative Medical decision making narrative: Patient declines anything for pain at this time. Patient sent for CT imaging of the head, C-spine, and facial bones. X-rays of the bilateral knees also obtained. Radiography Diagnostic Testing: Clinical Impression(s) from Imaging Studies Brain CT 05/19/23 17:30 IMPRESSION: Normal unenhanced CT scan of the brain. Electronically Signed: Jose Armando Rivero DO at 17:54 EST , Cervical Spine CT 05/19/23 17:30 IMPRESSION: Mild degenerative changes of the cervical spine. Electronically Signed: Jose Armando Rivero DO at 18:14 EST , Facial/Sinus 05/19/23 17:30 IMPRESSION: No acute bony injury of the facial bones. Electronically Signed: Jose Armando Rivero DO at 17:59 EST , Knee X-Ray 05/19/23 17:31 IMPRESSION: No acute bony injury. Electronically Signed: Jose Armando Rivero DO at 18:26 EST , Knee X-Ray 05/19/23 17:44 IMPRESSION: Negative. Electronically Signed: Jose Armando Rivero DO at 18:17 EST , Treatment and Re-Evaluation Narrative: CT scan of the head shows no acute abnormalities. CT the C-spine shows mild degenerative changes of the C-spine. CT scan of the facial bones was read as no acute bony injury of the facial bones. On my review of the facial CT it does appear that the radiopaque foreign body in the patient's lower lip. Bilateral knee x-rays per my interpretation reveal no evidence of bony injury. Radiology interpretation reviewed and agreed. Patient's lower lip is anesthetized with 2 cc of 1% lidocaine. Wound is cleansed and explored with cotton-tipped swabs. No obvious foreign body appreciated. Wound is irrigated and cleansed. The wound is sutured with 4 simple interrupted sutures of 5-0 Vicryl. Patient be treated with tramadol along with clindamycin to help prevent infection. Discharge Plan Triage Chief Complaint: Fall ED Provider: Annika Miranda Dx/Rx/DC Orders Clinical Impression: Contusion of knee, Closed head injury, Laceration of lip, Fall Instructions: ED Mechanical Fall, ED Laceration, Lip or Mouth Prescriptions: New clindamycin HCl 300 mg capsule 300 mg PO BID 7 Days Qty: 14 0RF tramadol 50 mg tablet 50 mg PO Q6H PRN (Reason: pain) Qty: 14 0RF No Action icosapent ethyl [Vascepa] 1 gram capsule 2 g PO BID ciclopirox 0.77 % cream 1 applic topical BID Farxiga 10 mg tablet 10 mg PO DAILY omeprazole 20 MG capsule 20 mg PO DAILY montelukast 10 MG tablet 10 mg PO DAILY lisinopril [Zestril] 40 MG tablet 40 mg PO DAILY metformin 500 MG tablet 500 mg PO DAILY Qty: 0 0RF Rx Instructions: May resume on 12/10/20 Ozempic 0.25 mg or 0.5 mg(2 mg/1.5 mL) pen injector 2.5 mg SUBCUT FR Primary Care Provider: Kun Hager Referrals: Kun Hager DO [Primary Care Provider] - 5-7 Days Disposition Disposition: Home, Self Care
--- NOTE | 2023-05-19 17:44 | RAD_ITS ---
INDICATION: injury EXAMINATION/TECHNIQUE: X-RAY - RIGHT XR Knee 4 VIEWS COMPARISON: FINDINGS: SOFT TISSUES: No soft tissue swelling or gas. No radiopaque foreign body. BONES/JOINTS: No acute fracture or subluxation.. Normal alignment. Preservation of the joint space.. No sclerotic or destructive changes observed. RAD/Knee 4 or More Views IMPRESSION: Negative. Electronically Signed: Jose Armando Rivero DO at 18:17 EST ,
[2023-05-19] MEDS: traMADol 50 MG Tablet PO (19:38)
[2023-05-19] MEDS: Clindamycin HCl 150 MG Capsule 300 MG PO (19:38)
[2023-05-19] MEDS: Lidocaine 1% (20 ml mdv) 20 ML Vial INFILT (19:39)
[2023-05-19 19:42] VITALS: PULSE 87; RESP 18; O2SAT 96
== END 2023-05-19 19:46 | disposition home or self-care (01) ==
PROVIDERS: Emergency Provider Emergency Medicine; PCP Student in an Organized Health Care Education/Training Program; Visit Provider Emergency Medicine
DX: S01.511A Laceration without foreign body of lip, initial encounter (principal); E11.9 Type 2 diabetes mellitus without complications; S80.01XA Contusion of right knee, initial encounter; S80.02XA Contusion of left knee, initial encounter; I10 Essential (primary) hypertension; E78.5 Hyperlipidemia, unspecified; F17.210 Nicotine dependence, cigarettes, uncomplicated; Z79.84 Long term (current) use of oral hypoglycemic drugs; Z79.899 Other long term (current) drug therapy; W18.09XA Striking against other object with subsequent fall, initial encounter
CPT/HCPCS: 12011; 70450; 70486; 72125; 73564; 99283

== ENCOUNTER 2024-07-12 21:30 | Emergency (ER) | payer BC, SELFPAY ==
[2024-07-12 21:30] VITALS: BP 159/79; PULSE 91; RESP 18; TEMP 36.1; O2SAT 99; BMI 35.3
--- NOTE | 2024-07-12 21:39 | RAD_ITS ---
PROCEDURE: HAND MIN 3 VIEWS REASON FOR EXAM: Pain, foreign body TECHNIQUE: 3 view(s) of the left hand COMPARISON: None. FINDINGS: No fracture or dislocation is identified. There is a staple foreign body in the ventral soft tissues at the base of the index finger. The medial prong of the staple is possibly imbedded within the bone of the proximal phalanx of the index finger, seen on all four views. RAD/Hand Min 3 Views IMPRESSION: Staple foreign body in the ventral soft tissues of the base of the index finger with a medial prong of the staple possibly imbedded within the bone of the base of the proximal phalanx of the index mariely edwards Reading Location: [facility]
[2024-07-12] MEDS: Ibuprofen 600 MG Tablet PO (22:14)
[2024-07-12] MEDS: Lidocaine 2% /Epi 1:100 (20ml) 20 ML VIAL INFILT (22:14)
--- NOTE | 2024-07-12 22:40 | EX.ED.UPPERE ---
HPI History of Present Illness Chief Complaint: Upper Extremity Injury Informant: patient and family Narrative Narrative: Patient is a 64-year-old female with past medical history of GERD hypertension hyperlipidemia and [id number] diabetes. She is right-hand dominant. She states roughly an hour ago she was using a staple gun and accidentally had the machine backwards and she put a staple into her left hand. She denies any numbness or tingling or weakness but reports pain at the puncture site. She states her tetanus status was updated just a few months ago. She states in order to get the staple out she presents for evaluation. [facility] Medical History Wears glasses Post-menopausal Smoker History of echocardiogram History of stress test Screening for colon cancer Left lower quadrant abdominal mass Left knee injury Hypermetropia, bilateral History of thyroid nodule Decreased GFR Chest pain in adult Candidal intertrigo GERD (gastroesophageal reflux disease) Hyperlipidemia Diabetes mellitus, type 2 Hypertension Home Medications ?Medication ?Instructions ?Recorded ?Last Taken ?Type lisinopril 40 mg tablet (Zestril) 40 mg PO DAILY 01/09/17 03/10/22 History montelukast 10 mg tablet 10 mg PO DAILY 01/09/17 12/06/20 History metformin 500 mg tablet 500 mg PO DAILY #0 tabs 12/07/20 12/06/20 Rx ciclopirox 0.77 % topical cream 1 applic topical BID 10/15/21 Unknown History omeprazole 20 mg capsule,delayed 40 mg PO DAILY 03/01/24 Unknown History release rosuvastatin 10 mg tablet 10 mg PO QDAY 03/01/24 Unknown History sertraline 50 mg tablet (Zoloft) 50 mg PO QDAY 03/01/24 Unknown History alprazolam 0.25 mg tablet 0.25 mg PO BID 2 weeks #28 tabs 05/27/24 Unknown Rx amlodipine 2.5 mg tablet 2.5 mg PO QDAY 05/27/24 Unknown History Allergy/AdvReac Type Severity Reaction Status Date / Time latex Allergy Severe Other Verified 07/12/24 21:30 aspirin (ASA) Allergy Unknown Verified 07/12/24 21:30 codeine Allergy Unknown Verified 07/12/24 21:30 Family History Mother Thyroid disorder CVA (cerebral vascular accident) Hypertension Father CVA (cerebral vascular accident) Heart disease Brother Diabetes Surgical History History of cardiac catheterization Hx of cholecystectomy H/O tubal ligation History of appendectomy History of dilatation and curettage History of carpal tunnel release History of ankle surgery History of left heart catheterization (12/07/20) Social History (Updated 07/12/24 @ 22:01 by Susannah Watts) household members: spouse housing: house Smoking Status: Current every day smoker tobacco type: cigarettes alcohol intake: current ROS ROS ED Constitutional Constitutional ED: Denies chills or fever(s) ENT ENT ED: Denies sore throat Cardiovascular Cardiovascular: Denies chest pain Respiratory/Chest Respiratory/Chest: Denies cough or dyspnea Gastrointestinal Gastrointestinal: Denies abdominal pain, diarrhea, nausea or vomiting Genitourinary Genitourinary ED: Denies dysuria Musculoskeletal Musculoskeletal: Reports other Details: Positive left hand pain Integumentary Reports other Details: Positive puncture wound left hand Neurologic Neurologic: Denies headache(s), paresthesias or weakness Hematologic/Lymphatic Hematologic/Lymphatic: Denies easy bleeding or easy bruising EXAM Physical Exam Const Vital Signs: 07/12/24 21:30 Temperature 96.9 F L Temperature Source Temporal Pulse Rate 91 Respiratory Rate 18 Blood Pressure 159/79 H Blood Pressure Mean 105 Pulse Ox 99 Oxygen Delivery Method Room Air Positive well nourished and well developed General Appearance ED: well developed HEENT HEENT Narrative: Normocephalic atraumatic Eyes PERRL and EOMs intact bilaterally Neck full ROM and supple Resp normal respiratory effort and clear to auscultation bilaterally Cardio regular rate and regular rhythm Extremity Extremity Narrative: Left upper extremity is neurovascularly intact; AIN/PIN are intact and normal. There is a puncture wound/staple present in the palmar aspect of the left hand near the second proximal phalange. No surrounding erythema or warmth to suggest secondary infection no signs of ligamentous or tendon injury noted. Neuro oriented x3, CN's II-XII intact bilaterally, moves all extremities, no focal motor deficits and no sensory deficits noted Sensorium / Orientation: alert Psych mental status grossly normal Skin no rashes or lesions noted Skin Narrative: Puncture wound to the palmar aspect of the left hand as documented above MDM MDM MDM Narrative Medical decision making narrative: Patient arrived to the ER hypertensive but has a past medical history of this. There is a foreign object/staple in the left hand consistent with history of injury. There is concern for potential secondary fracture from the puncture wound so therefore an x-ray was obtained. Concern for secondary cellulitis is low based on the acute nature of the puncture wound and no signs of erythema or warmth around the puncture site. The x-ray confirmed the staple present with questionable bony involvement. By exam the foreign object/staple still in the soft tissue and does not encompass bone and there is no signs of ligamentous or tendon injury so there is no need for orthopedic/hand consultation. Patient had staple removed as documented below and is otherwise safe for discharge The skin/foreign object was cleaned with chlorhexidine. The area was anesthetized with 6 mL of 2% lidocaine with epinephrine in local fashion. A staple remover was then used to remove the foreign object/staple from the left hand. It was removed and 1 complete piece. Following removal there was mild ooze of blood from the puncture site but no signs of pulsatile or arterial bleeding. Afterwards she remained with normal sensation and full active range of motion. Patient tolerated procedure well without complication. History & Record Review Discussion w/independent historian: Patient and Family Radiography Diagnostic Testing: Clinical Impression(s) from Imaging Studies Hand X-Ray 07/12/24 21:39 IMPRESSION: Staple foreign body in the ventral soft tissues of the base of the index finger with a medial prong of the staple possibly imbedded within the bone of the base of the proximal phalanx of the index finger. Reading Location: [facility] X-ray of the left hand as interpreted by the emergency medicine physician confirms staple/foreign object in the soft tissues of the left hand near the second proximal phalanx without obvious bony deformity/fracture Discharge Plan Triage Chief Complaint: Upper Extremity Injury ED Provider: Clayton Ronquillo Dx/Rx/DC Orders Clinical Impression: Puncture wound of left hand, GERD (gastroesophageal reflux disease), Non-insulin dependent diabetes mellitus, Hypertension Instructions: ED Puncture Wound (General) Prescriptions: No Action ciclopirox 0.77 % cream 1 applic topical BID sertraline [Zoloft] 50 mg tablet 50 mg PO QDAY rosuvastatin 10 mg tablet 10 mg PO QDAY amlodipine 2.5 mg tablet 2.5 mg PO QDAY alprazolam 0.25 mg tablet 0.25 mg PO BID 14 Days Qty: 28 1RF montelukast 10 MG tablet 10 mg PO DAILY lisinopril [Zestril] 40 MG tablet 40 mg PO DAILY omeprazole 20 mg capsule,delayed release(DR/EC) 40 mg PO DAILY metformin 500 MG tablet 500 mg PO DAILY Qty: 0 0RF Rx Instructions: May resume on 12/10/20 Primary Care Provider: Kun Hager Referrals: Kun Hager DO [Primary Care Provider] - Activity Restrictions/Additional Instructions: Please continue to clean the area with soap and water and you may also cover it with triple antibiotic ointment once to twice a day to prevent infection. Return to the ER should you have any further concerns Print Language: Frisian Disposition Disposition: Home, Self Care Discharge Date/Time: 07/12/24 22:54
[2024-07-12 22:42] VITALS: BP 159/79; PULSE 91; RESP 18; TEMP 36.1; O2SAT 99
== END 2024-07-12 22:54 | disposition home or self-care (01) ==
PROVIDERS: Emergency Provider Emergency Medicine; PCP Student in an Organized Health Care Education/Training Program; Visit Provider Emergency Medicine
DX: S61.442A Puncture wound with foreign body of left hand, initial encounter (principal); E11.9 Type 2 diabetes mellitus without complications; W29.8XXA Contact with other powered hand tools and household machinery, initial encounter; K21.9 Gastro-esophageal reflux disease without esophagitis; I10 Essential (primary) hypertension; F17.210 Nicotine dependence, cigarettes, uncomplicated; Z79.84 Long term (current) use of oral hypoglycemic drugs; Z79.899 Other long term (current) drug therapy
CPT/HCPCS: 73130; 99282